=== PATIENT | male | born 1950 | race Caucasian/White ===

== ENCOUNTER 2023-01-02 12:55 | Inpatient (IN) | payer MEDICARE, OTHER ==
--- NOTE | 2023-01-02 13:31 | ED ---
General Adult HPI - General Chief complaint: Shortness of Breath Stated complaint: FAHAD Time Seen by Provider: 01/02/23 13:10 Source: patient, RN notes reviewed, old records reviewed Mode of arrival: ambulatory Limitations: no limitations - History of Present Illness Initial comments: This is a 72-year-old male who presents emergency department with past medical history significant for liver failure probably secondary to drinking. Patient has often had ascites and pleural effusion. Patient states he has had it drained a couple times in the past. Patient states the difficulty breathing continues to get worse since last time he was drained earlier this month. Patient denies any fever chills. Patient denies any chest pain or palpitations. Patient denies any lightheadedness or dizziness. Patient states she has a little swelling to his legs but nothing worse than normal. Patient denies any calf pain. - Related Data Home Medications Medication Instructions Recorded Confirmed Furosemide [Lasix] 40 mg PO DAILY 01/02/23 01/02/23 Omeprazole [PriLOSEC] 20 mg PO DAILY 01/02/23 01/02/23 Spironolactone [Aldactone] 100 mg PO DAILY 01/02/23 01/02/23 Allergies Allergy/AdvReac Type Severity Reaction Status Date / Time No Known Allergies Allergy Verified 01/02/23 16:55 Review of Systems ROS Statement: Those systems with pertinent positive or pertinent negative responses have been documented in the HPI. ROS Other: All systems not noted in ROS Statement are negative. Past Medical History Past Medical History: Hypertension Additional Past Medical History / Comment(s): chronic hyponatermia, maurer esophagas, hyperbilirubinemia,espohageal varices History of Any Multi-Drug Resistant Organisms: None Reported Additional Past Surgical History / Comment(s): cataracts Past Psychological History: No Psychological Hx Reported Smoking Status: Never smoker Past Alcohol Use History: Abuse, Daily, Heavy Past Drug Use History: None Reported General Exam - General Exam Comments Initial Comments: GENERAL: Patient is well-developed and well-nourished. Patient is nontoxic and well- hydrated and is in mild distress. ENT: Neck is soft and supple. No significant lymphadenopathy is noted. Oropharynx is clear. Moist mucous membranes. Neck has full range of motion without eliciting any pain. EYES: The sclera were anicteric and conjunctiva were pink and moist. Extraocular movements were intact and pupils were equal round and reactive to light. Eyelids were unremarkable. PULMONARY: Unlabored respirations. Decreased breath sounds on the right base CARDIOVASCULAR: There is a regular rate and rhythm without any murmurs gallops or rubs. ABDOMEN: Soft and nontender with normal bowel sounds. SKIN: Skin is clear with no lesions or rashes and otherwise unremarkable. NEUROLOGIC: Patient is alert and oriented x3. Cranial nerves II through XII are grossly intact. Motor and sensory are also intact. Normal speech, volume and content. Symmetrical smile. Cerebellar exam grossly intact. MUSCULOSKELETAL: Normal extremities with adequate strength and full range of motion. Scant edema bilaterally no calf tenderness LYMPHATICS: No significant lymphadenopathy is noted PSYCHIATRIC: Normal psychiatric evaluation. Limitations: no limitations Course Vital Signs 01/02/23 01/02/23 01/02/23 13:08 14:30 15:26 Temperature 98.3 F 97.4 F L Pulse Rate 97 92 Respiratory 26 H 18 18 Rate Blood Pressure 114/76 127/80 O2 Sat by Pulse 97 100 Oximetry Medical Decision Making - Medical Decision Making EKG was interpreted by myself. EKG shows sinus rhythm at 88 bpm CA interval 216 QRS 7070 QT interval 395 QTC is 441. Patient's EKG shows no ST segment eleva tion or depression. Was pt. sent in by a medical professional or institution (, PA, AUDIO VISUAL TECHNICIAN, urgent care, hospital, or detention...) When possible be specific @ -No Did you speak to anyone other than the patient for history (EMS, parent, family, police, friend...)? What history was obtained from this source @ -No Did you review nursing and triage notes (agree or disagree)? Why? @ -I reviewed and agree with nursing and triage notes Were old charts reviewed (outside hosp., previous admission, EMS record, old EKG, old radiological studies, urgent care reports/EKG's, detention records)? Report findings @ -I reviewed prior radiological studies on this patient Differential Diagnosis (chest pain, altered mental status, abdominal pain women, abdominal pain men, vaginal bleeding, weakness, fever, dyspnea, syncope, head ache, dizziness, GI bleed, back pain, seizure, CVA, palpatations, mental health, musculoskeletal)? @ -Differential Dyspnea: Coronary syndrome, arrhythmia, tamponade, asthma, COPD, pulmonary embolism, pneumonia, pneumothorax, pulmonary effusion, anaphylaxis, diabetic ketoacidosis, flailed chest, pulmonary contusion, diaphragmatic rupture, anemia, neuromuscular, this is not meant to be an all-inclusive list. EKG interpreted by me (3pts min.). @ -As above X-rays interpreted by me (1pt min.). @ -Chest x-ray shows complete opacification of the right lung CT interpreted by me (1pt min.). @ -None done U/S interpreted by me (1pt. min.). @ -None done What testing was considered but not performed or refused? (CT, X-rays, U/S, labs)? Why? @ -None What meds were considered but not given or refused? Why? @ -None Did you discuss the management of the patient with other professionals (professionals i.e. , PA, AUDIO VISUAL TECHNICIAN, lab, RT, psych nurse, mental health social worker, electric system operator, teacher, mail officer, manager case)? Give summary @ -Is case with Dr. Rowland he agreed to admit the patient Was smoking cessation discussed for >3mins.? @ -No Was critical care preformed (if so, how long)? @ -No Were there social determinants of health that impacted care today? How? (Homelessness, low income, unemployed, alcoholism, drug addiction, tra nsportation, low edu. Level, literacy, decrease access to med. care, nursing home, rehab)? @ -No Was there de-escalation of care discussed even if they declined (Discuss DNR or withdrawal of care, Hospice)? DNR status @ -No What co-morbidities impacted this encounter? (DM, HTN, Smoking, COPD, CAD, Cancer, CVA, ARF, Chemo, Hep., AIDS, mental health diagnosis, sleep apnea, morbid obesity)? @ -None Was patient admitted / discharged? Hospital course, mention meds given and route, prescriptions, significant lab abnormalities, going to OR and other pertinent info. @ -Patient's chest x-ray showed complete opacification of the right lung. I spoke with Dr. Rowland he agreed to admit the patient admitted the patient I consulted Dr. Huber Undiagnosed new problem with uncertain prognosis? @ -No Drug Therapy requiring intensive monitoring for toxicity (Heparin, Nitro, Insulin, Cardizem)? @ -No Were any procedures done? @ -No Diagnosis/symptom? @ -Dyspnea Acute, or Chronic, or Acute on Chronic? @ -Acute Uncomplicated (without systemic symptoms) or Complicated (systemic symptoms)? @ -Complicated Side effects of treatment? @ -No Exacerbation, Progression, or Severe Exacerbation? @ -No Poses a threat to life or bodily function? How? (Chest pain, [place], [place], pneumonia, PE, COPD, DKA, ARF, appy, cholecystitis, CVA, Diverticulitis, Homicidal, Suici wolfgang, threat to staff... and all critical care pts) @ -Yes could lead to hypoxia and then end organ dysfunction Diagnosis/symptom? @ -Hyponatremia, hypomagnesemia Acute, or Chronic, or Acute on Chronic? @ -Acute Uncomplicated (without systemic symptoms) or Complicated (systemic symptoms)? @ -Uncomplicated Side effects of treatment? @ -none Exacerbation, Progression, or Severe Exacerbation] @ -no Poses a threat to life or bodily function? @ -no - Lab Data Result diagrams: 01/02/23 14:28 01/02/23 15:10 Lab Results 01/02/23 01/02/23 01/02/23 Range/Units 14:28 14:28 15:10 WBC 8.4 (3.8-10.6) k/uL RBC 3.76 L (4.30-5.90) m/uL Hgb 13.2 (13.0-17.5) gm/dL Hct 40.4 (39.0-53.0) % MCV 107.6 H (80.0-100.0) fL MCH 35.2 H (25.0-35.0) pg MCHC 32.7 (31.0-37.0) g/dL RDW 15.0 (11.5-15.5) % Plt Count 213 (150-450) k/uL MPV 8.0 Neutrophils % 60 % Lymphocytes % 22 % Monocytes % 14 % Eosinophils % 2 % Basophils % 0 % Neutrophils # 5.0 (1.3-7.7) k/uL Lymphocytes # 1.8 (1.0-4.8) k/uL Monocytes # 1.1 H (0-1.0) k/uL Eosinophils # 0.2 (0-0.7) k/uL Basophils # 0.0 (0-0.2) k/uL Manual Slide Review Performed Macrocytosis Marked A PT 15.2 H (9.0-12.0) sec INR 1.5 H (<1.2) APTT 25.6 (22.0-30.0) sec Sodium (137-145) mmol/L Potassium (3.5-5.1) mmol/L Chloride (98-107) mmol/L Carbon Dioxide (22-30) mmol/L Anion Gap mmol/L BUN (9-20) mg/dL Creatinine (0.66-1.25) mg/dL Est GFR (CKD-EPI)AfAm (>60 ml/min/1.73 sqM) Est GFR (CKD-EPI)NonAf (>60 ml/min/1.73 sqM) Glucose (74-99) mg/dL Plasma Lactic Acid Giuseppe 3.0 H* (0.7-2.0) mmol/L Calcium (8.4-10.2) mg/dL Magnesium (1.6-2.3) mg/dL Total Bilirubin (0.2-1.3) mg/dL AST (17-59) U/L ALT (4-49) U/L Alkaline Phosphatase (38-126) U/L Troponin I (0.000-0.034) ng/mL NT-Pro-B Natriuret Pep pg/mL Total Protein (6.3-8.2) g/dL Albumin (3.5-5.0) g/dL 01/02/23 01/02/23 Range/Units 15:10 15:10 WBC (3.8-10.6) k/uL RBC (4.30-5.90) m/uL Hgb (13.0-17.5) gm/dL Hct (39.0-53.0) % MCV (80.0-100.0) fL MCH (25.0-35.0) pg MCHC (31.0-37.0) g/dL RDW (11.5-15.5) % Plt Count (150-450) k/uL MPV Neutrophils % % Lymphocytes % % Monocytes % % Eosinophils % % Basophils % % Neutrophils # (1.3-7.7) k/uL Lymphocytes # (1.0-4.8) k/uL Monocytes # (0-1.0) k/uL Eosinophils # (0-0.7) k/uL Basophils # (0-0.2) k/uL Manual Slide Review Macrocytosis PT (9.0-12.0) sec INR (<1.2) APTT (22.0-30.0) sec Sodium 129 L (137-145) mmol/L Potassium 3.7 (3.5-5.1) mmol/L Chloride 94 L (98-107) mmol/L Carbon Dioxide 25 (22-30) mmol/L Anion Gap 10 mmol/L BUN 5 L (9-20) mg/dL Creatinine 0.73 (0.66-1.25) mg/dL Est GFR (CKD-EPI)AfAm >90 (>60 ml/min/1.73 sqM) Est GFR (CKD-EPI)NonAf >90 (>60 ml/min/1.73 sqM) Glucose 115 H (74-99) mg/dL Plasma Lactic Acid Giuseppe (0.7-2.0) mmol/L Calcium 8.5 (8.4-10.2) mg/dL Magnesium 1.5 L (1.6-2.3) mg/dL Total Bilirubin 3.1 H (0.2-1.3) mg/dL AST 73 H (17-59) U/L ALT 29 (4-49) U/L Alkaline Phosphatase 128 H (38-126) U/L Troponin I <0.012 (0.000-0.034) ng/mL NT-Pro-B Natriuret Pep 550 pg/mL Total Protein 8.5 H (6.3-8.2) g/dL Albumin 2.9 L (3.5-5.0) g/dL Disposition Clinical Impression: Pleural effusion, Dyspnea, Hypomagnesemia, Hyponatremia Disposition: ADMITTED IP TO THIS [facility] Time of Disposition: 16:34
--- NOTE | 2023-01-02 14:15 | XR ---
EXAMINATION TYPE: XR chest 2V DATE OF EXAM: 01/02/2023 COMPARISON: NONE TECHNIQUE: PA and lateral views submitted. HISTORY: difficulty in breathing. FINDINGS: Complete opacification the right hemithorax. There is deviation of the airway to the left. Subsegment al changes in the retrocardiac region. Visualized left lung clear. No pneumothorax. Hypertrophic dege nerative changes in the spine. Correlate for diffuse idiopathic skeletal hyperostosis. Bilateral shou lder arthropathy. IMPRESSION: 1. Complete opacification of the right hemithorax may represent a combination of pleural fluid and co nsolidation. Endobronchial lesion or obstruction in the differential diagnosis.
[2023-01-02 14:54] LABS: Basophils % (A) 0 %; Eosinophils # (A) 0.2 k/uL (0-0.7); Eosinophils % (A) 2 %; HCT 40.4 % (39.0-53.0); HGB 13.2 gm/dL (13.0-17.5); Lymphocytes # (A) 1.8 k/uL (1.0-4.8); Lymphocytes % (A) 22 %; MCH 35.2 pg (25.0-35.0); MCHC 32.7 g/dL (31.0-37.0); MCV 107.6 fL (80.0-100.0); Macrocytosis Marked; Monocytes # (A) 1.1 k/uL (0-1.0); Monocytes % (A) 14 %; Neutrophils % (A) 60 %; Platelet Count 213 k/uL (150-450); RBC 3.76 m/uL (4.30-5.90); WBC 8.4 k/uL (3.8-10.6)
[2023-01-02 15:05] LABS: INR 1.5 (<1.2); Partial Thromboplastin Time 25.6 sec (22.0-30.0); Prothrombin Time 15.2 sec (9.0-12.0)
[2023-01-02 15:32] LABS: ALT 29 U/L (4-49); AST 73 U/L (17-59); African American GFR (CKD) >90 (>60 ml/min/1.73 sqM); Albumin 2.9 g/dL (3.5-5.0); Alkaline Phosphatase 128 U/L (38-126); Anion Gap 10 mmol/L; Blood Urea Nitrogen 5 mg/dL (9-20); Calcium 8.5 mg/dL (8.4-10.2); Carbon Dioxide 25 mmol/L (22-30); Chloride 94 mmol/L (98-107); Glucose 115 mg/dL (74-99); Magnesium 1.5 mg/dL (1.6-2.3); Non-African American GFR(CKD) >90 (>60 ml/min/1.73 sqM); Potassium 3.7 mmol/L (3.5-5.1); Sodium 129 mmol/L (137-145); Total Bilirubin 3.1 mg/dL (0.2-1.3); Total Protein 8.5 g/dL (6.3-8.2)
[2023-01-02 15:40] LABS: NT-Pro-B-Type Natriuretic Pept 550 pg/mL
[2023-01-02] MEDS ORDERED: LORazepam 0.5 MG TAB PO PRN (18:06)
[2023-01-02] MEDS ORDERED: LACTULOSE 20 GM/30 ML CUP PO PRN (18:06)
[2023-01-02] MEDS ORDERED: CALCIUM CARBONATE 500 MG CHEWABLE PO PRN (18:06)
[2023-01-02] MEDS ORDERED: MELATONIN 3 MG TABLET PO PRN (18:06)
[2023-01-02] MEDS ORDERED: NALOXONE 0.4 MG/ML 1 ML VIAL IV PRN (18:06)
[2023-01-02] MEDS ORDERED: ONDANSETRON 4 MG/2 ML VIAL IVP PRN (18:06)
[2023-01-02] MEDS ORDERED: ACETAMINOPHEN TAB 325 MG TAB PO PRN (18:06)
--- NOTE | 2023-01-02 20:06 | US ---
EXAMINATION TYPE: US chest DATE OF EXAM: 01/02/2023 COMPARISON: XRAY: Today CLINICAL INDICATION: Male, 72 years old with history of Thoracentesis; david for thora TECHNIQUE: Targeted ultrasound of the posterior lower Bilateral EXAM MEASUREMENTS: Right Pleural Effusion pocket size: 8.9 cm Right skin surface to fluid distance: 3.2 cm Left Pleural Effusion pocket size: 0 cm Right side marked for possible thoracentesis outside the dept. Pulmonologists are able to review the images in the patient?s EMR. IMPRESSION: Findings as noted above.
--- NOTE | 2023-01-02 20:10 | P.CNPUL ---
History of Present Illness Consult date: 01/02/23 Reason for consult: dyspnea, pleural effusion History of present illness: This is a 72-year-old male patient with previous history of alcoholism and liver cirrhosis. The patient presented to the hospital because of worsening shortness of breath. He was at his primary care physician's office and he was found to have a large right-sided pleural effusion. In the emergency, the patient was quite short of breath. A chest x-ray was done and showed complete opacification of the right lung. He has had previous thoracentesis [address] [place] [facility] and the last thoracentesis was done on December 17. He also has history of ascites and the patient has had previous paracentesis. He has not drank alcohol since 2021. No signs of any hepatic encephalopathy. No cough. No sputum production. Trace lower extremity edema. No encephalopathy at this point in time. The patient is afebrile. The dullness count of 8.4 with a he moglobin of 13.2. BUN is at 5 the creatinine 0.7. Sodium level is at 129. INR is at 1.5 with a PT of 15.2 and a PTT of 25.6. Lactic acid level is at 3.0. LFTs are abnormal with an AST of 73, alkaline phosphatase of 128, troponins are negative, proBNP level is 550. Electrolytes are all within normal limits. Review of Systems Constitutional: Reports as per HPI, Reports fatigue, Reports poor appetite, Reports weight loss Eyes: denies as per HPI, denies blurred vision, denies bulging eye, denies decreased vision, denies diplopia, denies discharge, denies dry eye, denies irritation, denies itching, denies pain, denies photophobia, denies loss of peripheral vision, denies loss of vision, denies tunnel vision/blind spots Ears: deny: decreased hearing, ear discharge, earache, tinnitus Ears, nose, mouth and throat: Reports as per HPI Breasts: absent: as per HPI, gynecomastia Cardiovascular: Reports decreased exercise tolerance, Reports dyspnea on exertion Respiratory: Reports dyspnea Gastrointestinal: Reports as per HPI Musculoskeletal: Reports as per HPI Musculoskeletal: bilateral: ankle swelling, absent: ankle pain, ankle stiffness Integumentary: Reports as per HPI Neurological: Reports as per HPI Psychiatric: Reports as per HPI Endocrine: Reports as per HPI Hematologic/Lymphatic: Reports as per HPI Allergic/Immunologic: Reports as per HPI Past Medical History Past Medical History: Hypertension, Liver Disease Additional Past Medical History / Comment(s): chronic hyponatermia, maurer esophagas, hyperbilirubinemia,espohageal varices History of Any Multi-Drug Resistant Organisms: None Reported Additional Past Surgical History / Comment(s): cataracts Past Psychological History: No Psychological Hx Reported Smoking Status: Never smoker Past Alcohol Use History: Abuse, Daily, Heavy Past Drug Use History: None Reported Medications and Allergies Home Medications Medication Instructions Recorded Confirmed Type Furosemide [Lasix] 40 mg PO DAILY 01/02/23 01/02/23 History Omeprazole [PriLOSEC] 20 mg PO DAILY 01/02/23 01/02/23 History Spironolactone [Aldactone] 100 mg PO DAILY 01/02/23 01/02/23 History Allergies Allergy/AdvReac Type Severity Reaction Status Date / Time No Known Allergies Allergy Verified 01/02/23 16:55 Physical Exam Vitals: Vital Signs Temp Pulse Resp BP Pulse Ox 01/02/23 18:00 95 18 130/85 94 L 01/02/23 15:26 97.4 F L 92 18 127/80 100 01/02/23 14:30 18 01/02/23 13:08 98.3 F 97 26 H 114/76 97 Intake and Output 01/02/23 01/02/23 01/02/23 06:59 14:59 22:59 Other: Weight 95.254 kg Gen. appearance the patient is awake and alert and short of breath, currently on room air oxygen. Head exam was generally normal. There was no scleral icterus or corneal arcus. Mucous membranes were moist. Neck was supple and with jugular venous distension, thyromegaly, or carotid bruits. Carotids were easily palpable bilaterally. There was no adenopathy., The patient does have JVDs Lungs are diminished on the right side and the patient is complete opacification of the right lung, the breath sounds on the left are clear Cardiac exam revealed the PMI to be normally situated and sized. The rhythm was regular and no extrasystoles were noted during several minutes of auscultation. The first and second heart sounds were normal and physiologic splitting of the second heart sound was noted. There were no murmurs, rubs, clicks, or gallops. Abdomen is showing and ascites with a umbilical hernia. No direct tenderness, no rebound tenderness. No guarding Extremities trace edema, no cyanosis or clubbing Neurologically, the patient is awake and alert 3, no focal neurological deficit at this point in time. Examination of the skin revealed no evidence of significant rashes, suspicious appearing nevi or other concerning lesions. Results - Laboratory Findings CBC and BMP: 01/02/23 14:28 01/02/23 15:10 PT/INR, D-dimer PT 15.2 sec (9.0-12.0) H 01/02/23 14:28 INR 1.5 (<1.2) H 01/02/23 14:28 Abnormal lab findings: Abnormal Labs 01/02/23 01/02/23 01/02/23 14:28 14:28 15:10 RBC 3.76 L MCV 107.6 H MCH 35.2 H Monocytes # 1.1 H Macrocytosis Marked A PT 15.2 H INR 1.5 H Sodium Chloride BUN Glucose Plasma Lactic Acid Giuseppe 3.0 H* Magnesium Total Bilirubin AST Alkaline Phosphatase Total Protein Albumin 01/02/23 15:10 RBC MCV MCH Monocytes # Macrocytosis PT INR Sodium 129 L Chloride 94 L BUN 5 L Glucose 115 H Plasma Lactic Acid Giuseppe Magnesium 1.5 L Total Bilirubin 3.1 H AST 73 H Alkaline Phosphatase 128 H Total Protein 8.5 H Albumin 2.9 L - Diagnostic Findings Chest x-ray: image reviewed Assessment and Plan Plan: 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 No significant encephalopathy at this point in time Chronic hyponatremia secondary to liver failure Hyperbilirubinemia secondary to above Hypertension Plan We'll proceed with a large volume thoracentesis of the right lung Consult interventional radiology for paracentesis within next 24 hours Continue diuretics Continue lactulose Continue Aldactone We'll continue to follow
--- NOTE | 2023-01-02 20:31 | P.PCN ---
Date of Procedure: 01/02/23 Preoperative Diagnosis: Right-sided pleural effusion Postoperative Diagnosis: Right-sided pleural effusion Procedure(s) Performed: Right-sided thoracentesis Anesthesia: local Surgeon: Mervin Huber Estimated Blood Loss (ml): 0 Pathology: other Condition: stable Disposition: floor Operative Findings: A time out was performed and the chest x-ray was reviewed, the appropriate side was confirmed and marked. My hands were washed immediately prior to the procedure. I wore a surgical cap, mask with protective eyewear, sterile gown and sterile gloves throughout the procedure. The patient was prepped and draped in a sterile manner using chlorhexidine scrub after the appropriate level was percussed and confirmed by ultrasound. 1% lidocaine was used to anesthesize the skin, subcutaneous tissue, superior aspect of the rib periosteum and parietal pleura. A finder needle was then introduced over the superior aspect of the rib to locate the pleural fluid; 2colored fluid was aspirated at a depth of approximately 2 cm. A 10-blade scalpel was used to arlyn the skin at the insertion site. The Vrix-o-Frfwyxxl needle was then introduced through the skin incision into the pleural space using negative aspiration pressure and the red colometric indicator to confirm appropriate positioning of the needle. The thoracentesis catheter was then threaded without difficulty. 3000 ml of turbid colored fluid was removed without difficulty. The catheter was then removed. No immediate complications were noted during the procedure. A post-procedure chest x-ray is pending at the time of this note. The fluid will be sent for studies. Estimated blood loss is 0cc
--- NOTE | 2023-01-02 22:08 | XR ---
EXAMINATION TYPE: XR chest 1V DATE OF EXAM: 01/02/2023 8:47 PM COMPARISON: Chest radiographs from 01/02/2023, chest ultrasound 01/02/2023 TECHNIQUE: XR chest 1V Frontal view of the chest. CLINICAL INDICATION:Male, 72 years old with history of post thoracentesis; FINDINGS: Lungs/Pleura: Left lung is clear. Decreased moderate size right pleural effusion with associated atel ectasis. No pneumothorax. Pulmonary vascularity: Unremarkable. Heart/mediastinum: Cardiomediastinal silhouette is unremarkable. Musculoskeletal: No acute osseous pathology. IMPRESSION: Decreased now moderate size right pleural effusion with associated atelectasis status post thoracente sis. No pneumothorax.
[2023-01-03] MEDS: PANTOPRAZOLE 40 MG TABLET PO SCH (08:07)
[2023-01-03] MEDS ORDERED: SPIRONOLACTONE 25 MG TAB PO SCH (09:00)
[2023-01-03 12:09] LABS: Basophils % (A) 0 %; Eosinophils # (A) 0.3 k/uL (0-0.7); Eosinophils % (A) 4 %; HCT 39.1 % (39.0-53.0); HGB 12.7 gm/dL (13.0-17.5); Lymphocytes # (A) 2.1 k/uL (1.0-4.8); Lymphocytes % (A) 27 %; MCH 35.6 pg (25.0-35.0); MCHC 32.5 g/dL (31.0-37.0); MCV 109.4 fL (80.0-100.0); Macrocytosis Marked; Mean Platelet Volume 7.8; Monocytes # (A) 0.8 k/uL (0-1.0); Monocytes % (A) 10 %; Neutrophils # (A) 4.5 k/uL (1.3-7.7); Neutrophils % (A) 57 %; Platelet Count 216 k/uL (150-450); RBC 3.57 m/uL (4.30-5.90); WBC 7.9 k/uL (3.8-10.6)
[2023-01-03 12:16] LABS: Chloride 95 mmol/L (98-107)
[2023-01-03 12:17] LABS: ALT 27 U/L (4-49); AST 65 U/L (17-59); African American GFR (CKD) >90 (>60 ml/min/1.73 sqM); Albumin 2.5 g/dL (3.5-5.0); Albumin/Globulin Ratio 0.5; Alkaline Phosphatase 113 U/L (38-126); Anion Gap 5 mmol/L; Blood Urea Nitrogen 6 mg/dL (9-20); Calcium 8.3 mg/dL (8.4-10.2); Carbon Dioxide 28 mmol/L (22-30); Glucose 113 mg/dL (74-99); Non-African American GFR(CKD) >90 (>60 ml/min/1.73 sqM); Potassium 4.2 mmol/L (3.5-5.1); Sodium 128 mmol/L (137-145); Total Bilirubin 2.7 mg/dL (0.2-1.3); Total Protein 7.5 g/dL (6.3-8.2)
--- NOTE | 2023-01-03 12:59 | US ---
EXAMINATION TYPE: US abdomen limited DATE OF EXAM: 01/03/2023 COMPARISON: NONE CLINICAL INDICATION: Male, 72 years old with history of to assess for fluid pocket; ascites check FINDINGS and IMPRESSION: Drama Director notes: Several sonographic images acquired of the four quadrants. Most prominent fluid pockets are on the right side. The deepest unobstructed pocket is 8.4cm in the R LQ
[2023-01-03 14:04] VITALS: BMI 31.0
--- NOTE | 2023-01-03 14:53 | P.PN ---
Subjective Progress Note Date: 01/03/23 This is a 72-year-old male patient with previous history of alcoholism and liver cirrhosis. The patient presented to the hospital because of worsening shortness of breath. He was at his primary care physician's office and he was found to have a large right-sided pleural effusion. In the emergency, the patient was quite short of breath. A chest x-ray was done and showed complete opacification of the right lung. He has had previous thoracentesis 2 at [facility] and the last thoracentesis was done on December 17. He also has history of ascites and the patient has had previous paracentesis. He has not drank alcohol since 2021. No signs of any hepatic encephalopathy. No cough. No sputum production. Trace lower extremity edema. No encephalopathy at this point in time. The patient is afebrile. The dullness count of 8.4 with a hemoglobin of 13.2. BUN is at 5 the creatinine 0.7. Sodium level is at 129. INR is at 1.5 with a PT of 15.2 and a PTT of 25.6. Lactic acid level is at 3.0. LFTs are abnormal with an AST of 73, alkaline phosphatase of 128, troponins are negative, proBNP level is 550. Electrolytes are all within normal limits. On 01/03/2023, the patient is feeling better. The patient is less short of breath. The patient remains on room air oxygen. A total of 3 L of fluid was removed from the right lung without any complication. The patient continues to have an ascites and the patient would benefit from a paracentesis. Objective - Vital Signs Vital signs: Vital Signs Temp 98.1 F 01/03/23 14:45 Pulse 89 01/03/23 14:45 Resp 16 01/03/23 14:45 BP 96/61 01/03/23 14:45 Pulse Ox 97 01/03/23 14:45 FiO2 Intake & Output 01/02/23 01/03/23 01/03/23 18:59 06:59 18:59 Weight 95.254 kg 95.254 kg 95.254 kg Other: Voiding Method Toilet Toilet # Voids 3 - Exam Gen. appearance the patient is awake and alert and short of breath, currently on room air oxygen. Head exam was generally normal. There was no scleral icterus or corneal arcus. Mucous membranes were moist. Neck was supple and with jugular venous distension, thyromegaly, or carotid bruits. Carotids were easily palpable bilaterally. There was no adenopathy., The patient does have JVDs Lungs are diminished on the right side and the patient is complete opacification of the right lung, the breath sounds on the left are clear Cardiac exam revealed the PMI to be normally situated and sized. The rhythm was regular and no extrasystoles were noted during several minutes of auscultation. The first and second heart sounds were normal and physiologic splitting of the second heart sound was noted. There were no murmurs, rubs, clicks, or gallops. Abdomen is showing and ascites with a umbilical hernia. No direct tenderness, no rebound tenderness. No guarding Extremities trace edema, no cyanosis or clubbing Neurologically, the patient is awake and alert 3, no focal neurological deficit at this point in time. Examination of the skin revealed no evidence of significant rashes, suspicious appearing nevi or other concerning lesions. - Labs CBC & Chem 7: 01/03/23 11:11 01/03/23 11:11 Labs: Abnormal Lab Results - Last 24 Hours (Table) 01/02/23 01/02/23 01/02/23 Range/Units 14:28 14:28 15:10 RBC 3.76 L (4.30-5.90) m/uL Hgb (13.0-17.5) gm/dL MCV 107.6 H (80.0-100.0) fL MCH 35.2 H (25.0-35.0) pg Monocytes # 1.1 H (0-1.0) k/uL Macrocytosis Marked A PT 15.2 H (9.0-12.0) sec INR 1.5 H (<1.2) Sodium (137-145) mmol/L Chloride (98-107) mmol/L BUN (9-20) mg/dL Glucose (74-99) mg/dL Plasma Lactic Acid Giuseppe 3.0 H* (0.7-2.0) mmol/L Calcium (8.4-10.2) mg/dL Magnesium (1.6-2.3) mg/dL Total Bilirubin (0.2-1.3) mg/dL AST (17-59) U/L Alkaline Phosphatase (38-126) U/L Total Protein (6.3-8.2) g/dL Albumin (3.5-5.0) g/dL 01/02/23 01/02/23 01/02/23 Range/Units 15:10 18:56 22:45 RBC (4.30-5.90) m/uL Hgb (13.0-17.5) gm/dL MCV (80.0-100.0) fL MCH (25.0-35.0) pg Monocytes # (0-1.0) k/uL Macrocytosis PT (9.0-12.0) sec INR (<1.2) Sodium 129 L (137-145) mmol/L Chloride 94 L (98-107) mmol/L BUN 5 L (9-20) mg/dL Glucose 115 H (74-99) mg/dL Plasma Lactic Acid Giuseppe 2.4 H* 3.3 H* (0.7-2.0) mmol/L Calcium (8.4-10.2) mg/dL Magnesium 1.5 L (1.6-2.3) mg/dL Total Bilirubin 3.1 H (0.2-1.3) mg/dL AST 73 H (17-59) U/L Alkaline Phosphatase 128 H (38-126) U/L Total Protein 8.5 H (6.3-8.2) g/dL Albumin 2.9 L (3.5-5.0) g/dL 01/03/23 01/03/23 Range/Units 11:11 11:11 RBC 3.57 L (4.30-5.90) m/uL Hgb 12.7 L (13.0-17.5) gm/dL MCV 109.4 H (80.0-100.0) fL MCH 35.6 H (25.0-35.0) pg Monocytes # (0-1.0) k/uL Macrocytosis Marked A PT (9.0-12.0) sec INR (<1.2) Sodium 128 L (137-145) mmol/L Chloride 95 L (98-107) mmol/L BUN 6 L (9-20) mg/dL Glucose 113 H (74-99) mg/dL Plasma Lactic Acid Giuseppe (0.7-2.0) mmol/L Calcium 8.3 L (8.4-10.2) mg/dL Magnesium (1.6-2.3) mg/dL Total Bilirubin 2.7 H (0.2-1.3) mg/dL AST 65 H (17-59) U/L Alkaline Phosphatase (38-126) U/L Total Protein (6.3-8.2) g/dL Albumin 2.5 L (3.5-5.0) g/dL Assessment and Plan Plan: 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
--- NOTE | 2023-01-03 14:57 | US ---
Ultrasound-guided paracentesis. DATE OF EXAM: 01/03/2023 CLINICAL HISTORY: Ascites The procedure was discussed with the patient. The risks, complications, benefits, and alternatives we re discussed and any questions were answered. Informed consent was obtained. The patient was placed s upine on the ultrasound table and prepped and draped in the usual sterile fashion. All elements of maximal barrier technique were utilized. Under ultrasound guidance, access into the right lower quadrant was obtained, via the paracentesis catheter system and direct ultrasound guidanc e. Approximately 1.5 liters of straw-colored fluid was removed. The patient was stable throughout the pr ocedure and remained stable upon discharge from Department of Radiology. IMPRESSION: Successful paracentesis under ultrasound guidance.
--- NOTE | 2023-01-03 17:04 | P.HPIM ---
History of Present Illness H&P Date: 01/03/23 Chief Complaint: Short of breath This is a pleasant 72-year-old patient of Dr. Horacio Cardoza. Not a very detailed historian. Known history of hypertension, Maurer's esophag itis, varices, possible cirrhosis. Last saw Dr. Annalee Zafar from GI about 2 years ago. Request to 2 months patient been getting increasingly short of breath. No fever no chills. Decreased appetite. Some weight loss. Normally able to get around. Patient was drinking somewhat excessive alcohol in the past. Has lower extremity edema. Some abdominal distention. No chest pain Review of systems: GEN.: Decreased appetite EYES: None HEENT: None NECK: None RESPIRATORY: As above CARDIOVASCULAR: No chest pain GASTROINTESTINAL: None GENITOURINARY: None MUSCULOSKELETAL: None LYMPHATICS: None HEMATOLOGICAL: None PSYCHIATRY: Bit forgetful NEUROLOGICAL: None Past medical history to include: Hypertension, possible cirrhosis, Maurer's esophagus, low-sodium, esophageal varices, Social history: . Retired from [employer]. Up till last year was averaging about 12 beers a week. No smoking. Physical examination: VITAL SIGNS: 98.3, 97, 26, 104/76, 97% room air GENERAL: BMI 31, reclining bed awake slightly short of breath. Gynecomastia. Spider nevi. Dupytrens contracture EYES: Pupils equal. Conjunctiva normal. HEENT: External appearance of nose and ears normal, oral cavity grossly normal. NECK: JVD possibly raised masses not palpable. HEART: First and second heart sounds are normal; no edema. LUNGS: Respiratory rate increased; creased breath sounds. ABDOMEN: Soft, some distention, nontender, liver spleen not palpable, no masses palpable. Dullness to percussion in the flanks. PSYCH: [Able tonsil simple questions. MUSCULOSKELETAL:No Clubbing/cyanosis;muscles-grossly intact NEUROLOGICAL: Cranial nerves grossly intact; no facial asymmetry, power and sensation grossly intact. LYMPHATICS: No lymph nodes palpable in the axilla and neck INVESTIGATIONS, reviewed in the clinical context: 01/03/2023: White count 7.9 hemoglobin 12.7 platelets 216 sodium 128 potassium 4.2 BUN 6 rate and 0.68 total bilirubin 2.7 albumin 2.5 January 02: White count 8.4 hemoglobin 13.2 platelets 213 sodium 129 potassium 3.7 creatinine 0.73 lactic acid 3.0 magnesia 1.5 total bilirubin 3.1 EKG tracing personally reviewed by me-normal sinus rhythm. Chest x-ray film personally reviewed by me-near opacification of the right lung. Chest ultrasound: 8.9 cm on the right side. 0 on the left side. Assessment and plan: -Large right pleural effusion. Could be from abdominal ascites translocation due to the same. Other causes to be ruled out. 1.5 L of straw-colored fluid removed today. Pulmonary consulted. -Probable alcoholic cirrhosis with evidence of portal hypertension. Patient has followed up with Dr. Annalee Zafar in the past. GI service not available in the hospital. -Ascites secondary to portal hypertension from cirrhosis Fluid restriction. Increase Aldactone to 100 mg twice a day.. -Hypoalbuminemia from cirrhosis. -Chronic Esophageal varices. Currently no evidence of bleeding. -GERD PPI -Hyponatremia from hypervolemia. Diuretics.. Fluid restriction. -Full code Discussed with patient today. Status post paracentesis.Given the complexity and severity of patient's condition expect the patient to be in the hospital at least for 2 overnights Past Medical History Past Medical History: Hypertension, Liver Disease Additional Past Medical History / Comment(s): chronic hyponatermia, maurer esophagas, hyperbilirubinemia,espohageal varices History of Any Multi-Drug Resistant Organisms: None Reported Additional Past Surgical History / Comment(s): cataracts Past Psychological History: No Psychological Hx Reported Smoking Status: Never smoker Past Alcohol Use History: Abuse, Daily, Heavy Past Drug Use History: None Reported Medications and Allergies Home Medications Medication Instructions Recorded Confirmed Type Furosemide [Lasix] 40 mg PO DAILY 01/02/23 01/02/23 History Omeprazole [PriLOSEC] 20 mg PO DAILY 01/02/23 01/02/23 History Spironolactone [Aldactone] 100 mg PO DAILY 01/02/23 01/02/23 History Allergies Allergy/AdvReac Type Severity Reaction Status Date / Time No Known Allergies Allergy Verified 01/02/23 16:55 Physical Exam Vitals: Vital Signs Temp Pulse Pulse Resp BP BP Pulse Ox 01/03/23 08:00 97 16 01/03/23 07:00 98.6 F 97 16 107/71 94 L 01/03/23 02:48 97.4 F L 78 18 134/74 96 01/03/23 02:00 19 01/02/23 22:00 99 20 01/02/23 21:56 98.3 F 99 18 113/75 95 01/02/23 18:00 95 18 130/85 94 L 01/02/23 15:26 97.4 F L 92 18 127/80 100 01/02/23 14:30 18 01/02/23 13:08 98.3 F 97 26 H 114/76 97 Intake and Output 01/02/23 01/03/23 01/03/23 22:59 06:59 14:59 Other: Voiding Method Toilet Toilet Weight 95.254 kg Results CBC & Chem 7: 01/03/23 11:11 01/03/23 11:11 Labs: Abnormal Lab Results - Last 24 Hours (Table) 01/02/23 01/02/23 01/02/23 Range/Units 14:28 14:28 15:10 RBC 3.76 L (4.30-5.90) m/uL MCV 107.6 H (80.0-100.0) fL MCH 35.2 H (25.0-35.0) pg Monocytes # 1.1 H (0-1.0) k/uL Macrocytosis Marked A PT 15.2 H (9.0-12.0) sec INR 1.5 H (<1.2) Sodium (137-145) mmol/L Chloride (98-107) mmol/L BUN (9-20) mg/dL Glucose (74-99) mg/dL Plasma Lactic Acid Giuseppe 3.0 H* (0.7-2.0) mmol/L Magnesium (1.6-2.3) mg/dL Total Bilirubin (0.2-1.3) mg/dL AST (17-59) U/L Alkaline Phosphatase (38-126) U/L Total Protein (6.3-8.2) g/dL Albumin (3.5-5.0) g/dL 01/02/23 01/02/23 01/02/23 Range/Units 15:10 18:56 22:45 RBC (4.30-5.90) m/uL MCV (80.0-100.0) fL MCH (25.0-35.0) pg Monocytes # (0-1.0) k/uL Macrocytosis PT (9.0-12.0) sec INR (<1.2) Sodium 129 L (137-145) mmol/L Chloride 94 L (98-107) mmol/L BUN 5 L (9-20) mg/dL Glucose 115 H (74-99) mg/dL Plasma Lactic Acid Giuseppe 2.4 H* 3.3 H* (0.7-2.0) mmol/L Magnesium 1.5 L (1.6-2.3) mg/dL Total Bilirubin 3.1 H (0.2-1.3) mg/dL AST 73 H (17-59) U/L Alkaline Phosphatase 128 H (38-126) U/L Total Protein 8.5 H (6.3-8.2) g/dL Albumin 2.9 L (3.5-5.0) g/dL Thrombosis Risk Factor Assmnt - Choose All That Apply Any of the Below Risk Factors Present?: Yes Each Factor Represents 1 point: Obesity (BMI >25) Other Risk Factors: Yes Each Risk Factor Represents 2 Points: Age 61-74 years Other congenital or acquired thrombophilia - If yes, enter type in comment: No Thrombosis Risk Factor Assessment Total Risk Factor Score: 3 Thrombosis Risk Factor Assessment Level: Moderate Risk
[2023-01-03] MEDS: FUROSEMIDE 40 MG TAB PO SCH (18:06)
[2023-01-03] MEDS: SPIRONOLACTONE 25 MG TAB PO SCH (20:16)
[2023-01-04 05:59] LABS: African American GFR (CKD) >90 (>60 ml/min/1.73 sqM); Anion Gap 7 mmol/L; Blood Urea Nitrogen 5 mg/dL (9-20); Calcium 8.3 mg/dL (8.4-10.2); Carbon Dioxide 27 mmol/L (22-30); Chloride 97 mmol/L (98-107); Glucose 99 mg/dL (74-99); Non-African American GFR(CKD) >90 (>60 ml/min/1.73 sqM); Potassium 4.5 mmol/L (3.5-5.1); Sodium 131 mmol/L (137-145)
[2023-01-04] MEDS: SPIRONOLACTONE 25 MG TAB PO SCH ×2 (08:14→19:53)
[2023-01-04] MEDS: PANTOPRAZOLE 40 MG TABLET PO SCH (08:14)
[2023-01-04] MEDS: FUROSEMIDE 40 MG TAB PO SCH (08:14)
--- NOTE | 2023-01-04 14:23 | XR ---
EXAMINATION TYPE: XR chest 2V DATE OF EXAM: 01/04/2023 COMPARISON: 01/02/2023 HISTORY: Right-sided pleural effusion TECHNIQUE: Frontal and lateral views of the chest are obtained. FINDINGS: There has been a mild interval reduction in the size of the right pleural effusion however a markedly large pleural effusion persists. The left lung remains clear. The osseous structures are intact. IMPRESSION: Marked right-sided pleural effusion which has decreased slightly in the interval.
--- NOTE | 2023-01-04 14:39 | P.PN ---
Subjective Progress Note Date: 01/04/23 This is a 72-year-old male patient with previous history of alcoholism and liver cirrhosis. The patient presented to the hospital because of worsening shortness of breath. He was at his primary care physician's office and he was found to have a large right-sided pleural effusion. In the emergency, the patient was quite short of breath. A chest x-ray was done and showed complete opacification of the right lung. He has had previous thoracentesis 2 at [facility] and the last thoracentesis was done on December 17. He also has history of ascites and the patient has had previous paracentesis. He has not drank alcohol since 2021. No signs of any hepatic encephalopathy. No cough. No sputum production. Trace lower extremity edema. No encephalopathy at this point in time. The patient is afebrile. The dullness count of 8.4 with a hemoglobin of 13.2. BUN is at 5 the creatinine 0.7. Sodium level is at 129. INR is at 1.5 with a PT of 15.2 and a PTT of 25.6. Lactic acid level is at 3.0. LFTs are abnormal with an AST of 73, alkaline phosphatase of 128, troponins are negative, proBNP level is 550. Electrolytes are all within normal limits. On 01/03/2023, the patient is feeling better. The patient is less short of breath. The patient remains on room air oxygen. A total of 3 L of fluid was removed from the right lung without any complication. The patient continues to have an ascites and the patient would benefit from a paracentesis. 01/04/2023, the patient is post thoracentesis with 3 L and paracentesis with 1.5 L. No complaints. Objective - Vital Signs Vital signs: Vital Signs Temp 98.2 F 01/04/23 07:00 Pulse 89 01/04/23 07:00 Resp 16 01/04/23 07:00 BP 100/65 01/04/23 07:00 Pulse Ox 95 01/04/23 10:27 FiO2 21 01/04/23 10:27 Intake & Output 01/03/23 01/04/23 01/04/23 18:59 06:59 18:59 Output Total 400 Balance -400 Weight 95.254 kg Output: Urine 400 Other: Voiding Method Toilet Toilet Toilet Urinal Urinal # Voids 3 - Exam Gen. appearance the patient is awake and alert and short of breath, currently on room air oxygen. Head exam was generally normal. There was no scleral icterus or corneal arcus. Mucous membranes were moist. Neck was supple and with jugular venous distension, thyromegaly, or carotid bruits. Carotids were easily palpable bilaterally. There was no adenopathy., The patient does have JVDs Lungs are diminished on the right side and the patient is complete opacification of the right lung, the breath sounds on the left are clear Cardiac exam revealed the PMI to be normally situated and sized. The rhythm was regular and no extrasystoles were noted during several minutes of auscultation. The first and second heart sounds were normal and physiologic splitting of the second heart sound was noted. There were no murmurs, rubs, clicks, or gallops. Abdomen is showing and ascites with a umbilical hernia. No direct tenderness, no rebound tenderness. No guarding Extremities trace edema, no cyanosis or clubbing Neurologically, the patient is awake and alert 3, no focal neurological deficit at this point in time. Examination of the skin revealed no evidence of significant rashes, suspicious appearing nevi or other concerning lesions. 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 No significant encephalopathy at this point in time Chronic hyponatremia secondary to liver failure Hyperbilirubinemia secondary to above Hypertension Plan May discharge this patient home Continue lactulose Advice against Tylenol May benefit from Lasix and Aldactone at time of discharge
[2023-01-04] MEDS: FUROSEMIDE 10 MG/ML 10 ML VIAL IV SCH ×2 (15:22→21:20)
--- NOTE | 2023-01-04 17:26 | P.PN ---
Progress Note - Text Progress Note Date: 01/04/23 Chief Complaint: Short of breath This is a pleasant 72-year-old patient of Dr. Horacio Cardoza. Not a very detailed historian. Known history of hypertension, Gardner's esophagitis, varices, possible cirrhosis. Last saw Dr. Annalee Zafar from GI about 2 years ago. Request to 2 months patient been getting increasingly short of breath. No fever no chills. Decreased appetite. Some weight loss. Normally able to get around. Patient was drinking somewhat excessive alcohol in the past. Has lower extremity edema. Some abdominal distention. No chest pain Patient underwent thoracentesis and paracentesis. 01/04/2023: Still complaining of shortness of breath. Tired. Edema present. Eating some. Changed from by mouth Lasix to IV Lasix. Fluid restriction. Strict I's and O's. Have the patient up in a chair. Active Medications Acetaminophen (Acetaminophen Tab 325 Mg Tab) 650 mg PO Q6HR PRN PRN Reason: Mild Pain or Fever > 100.5 Calcium Carbonate/Glycine (Calcium Carbonate 500 Mg Chewable) 1,000 mg PO Q4HR PRN PRN Reason: Dyspepsia Furosemide (Furosemide 10 Mg/Ml 10 Ml Vial) 60 mg IV Q12HR [facility] Last Admin: 01/04/23 15:22 Dose: 60 mg Lactulose (Lactulose 20 Gm/30 Ml Cup) 20 gm PO DAILY PRN PRN Reason: Constipation Lorazepam (Lorazepam 0.5 Mg Tab) 0.5 mg PO Q6HR PRN PRN Reason: Anxiety Melatonin (Melatonin 3 Mg Tablet) 3 mg PO HS PRN PRN Reason: Insomnia Naloxone HCl (Naloxone 0.4 Mg/Ml 1 Ml Vial) 0.2 mg IV Q2M PRN PRN Reason: Opioid Reversal Ondansetron HCl (Ondansetron 4 Mg/2 Ml Vial) 4 mg IVP Q8HR PRN PRN Reason: Nausea And Vomiting Pantoprazole Sodium (Pantoprazole 40 Mg Tablet) 40 mg PO DAILY [facility] Last Admin: 01/04/23 08:14 Dose: 40 mg Spironolactone (Spironolactone 25 Mg Tab) 100 mg PO BID [facility] Last Admin: 01/04/23 08:14 Dose: 100 mg Past medical history to include: Hypertension, possible cirrhosis, Gardner's esophagus, low-sodium, esophageal varices, Social history: . Retired from [employer]. Up till last year was averaging about 12 beers a week. No smoking. Physical examination: VITAL SIGNS: 98.3, 82, 16, 11 3 x 61, 96% room air GENERAL: BMI 31, reclining bed. Tired. Gynecomastia. Spider nevi. Dupytrens contracture EYES: Pupils equal. Conjunctiva normal. HEENT: External appearance of nose and ears normal, oral cavity grossly normal. NECK: JVD possibly raised masses not palpable. HEART: First and second heart sounds are normal; no edema. LUNGS: Respiratory rate increased; decreased breath sounds. ABDOMEN: Soft, some distention, nontender, liver spleen not palpable, no masses palpable. Dullness to percussion in the flanks. PSYCH: Able to answer questions INVESTIGATIONS, reviewed in the clinical context: January 04: Potassium 4.5 crit 0.68 01/03/2023: White count 7.9 hemoglobin 12.7 platelets 216 sodium 128 potassium 4.2 BUN 6 rate and 0.68 total bilirubin 2.7 albumin 2.5 January 02: White count 8.4 hemoglobin 13.2 platelets 213 sodium 129 potassium 3.7 creatinine 0.73 lactic acid 3.0 magnesia 1.5 total bilirubin 3.1 EKG tracing personally reviewed by me-normal sinus rhythm. Chest x-ray film personally reviewed by me-near opacification of the right lung. Chest ultrasound: 8.9 cm on the right side. 0 on the left side. Assessment and plan: -Large right pleural effusion. Could be from abdominal ascites translocation due to the same. Other causes to be ruled out. 1.5 L of straw-colored fluid removed January 03.. Pulmonary following. -Probable alcoholic cirrhosis with evidence of portal hypertension. Patient has followed up with Dr. Annalee Zafar in the past. GI service not available in the hospital. -Ascites secondary to portal hypertension from cirrhosis Fluid restriction. Aldactone to 100 mg twice a day.. Paracentesis is 1.5 L done on January 03. -Acute fluid overload, multifactorial Change oral Lasix to IV Lasix 60 mg every 12. -Hypoalbuminemia from cirrhosis. -Chronic Esophageal varices. Currently no evidence of bleeding. -GERD PPI -Hyponatremia from hypervolemia. Diuretics.. Fluid restriction. -Full code IV Lasix 60 mg every 12. Strict I's and O's. Fluid restriction. Aldactone was increased yesterday.
[2023-01-05 06:06] LABS: African American GFR (CKD) >90 (>60 ml/min/1.73 sqM); Anion Gap 5 mmol/L; Blood Urea Nitrogen 5 mg/dL (9-20); Calcium 7.7 mg/dL (8.4-10.2); Carbon Dioxide 28 mmol/L (22-30); Chloride 95 mmol/L (98-107); Glucose 79 mg/dL (74-99); Non-African American GFR(CKD) >90 (>60 ml/min/1.73 sqM); Potassium 3.5 mmol/L (3.5-5.1); Sodium 128 mmol/L (137-145)
[2023-01-05] MEDS: FUROSEMIDE 10 MG/ML 10 ML VIAL IV SCH ×3 (08:59→20:39)
[2023-01-05] MEDS: SPIRONOLACTONE 25 MG TAB PO SCH ×2 (08:59→20:39)
[2023-01-05] MEDS: PANTOPRAZOLE 40 MG TABLET PO SCH (08:59)
--- NOTE | 2023-01-05 12:34 | P.PN ---
Subjective Progress Note Date: 01/05/23 This is a 72-year-old male patient with previous history of alcoholism and liver cirrhosis. The patient presented to the hospital because of worsening shortness of breath. He was at his primary care physician's office and he was found to have a large right-sided pleural effusion. In the emergency, the patient was quite short of breath. A chest x-ray was done and showed complete opacification of the right lung. He has had previous thoracentesis 2 at [facility] and the last thoracentesis was done on December 17. He also has history of ascites and the patient has had previous paracentesis. He has not drank alcohol since 2021. No signs of any hepatic encephalopathy. No cough. No sputum production. Trace lower extremity edema. No encephalopathy at this point in time. The patient is afebrile. The dullness count of 8.4 with a hemoglobin of 13.2. BUN is at 5 the creatinine 0.7. Sodium level is at 129. INR is at 1.5 with a PT of 15.2 and a PTT of 25.6. Lactic acid level is at 3.0. LFTs are abnormal with an AST of 73, alkaline phosphatase of 128, troponins are negative, proBNP level is 550. Electrolytes are all within normal limits. On 01/03/2023, the patient is feeling better. The patient is less short of breath. The patient remains on room air oxygen. A total of 3 L of fluid was removed from the right lung without any complication. The patient continues to have an ascites and the patient would benefit from a paracentesis. 01/04/2023, the patient is post thoracentesis with 3 L and paracentesis with 1.5 L. No complaints. 2022, remains on room air oxygen, currently on IV Lasix, receiving 60 mg every 12 hours in addition to Aldactone, the medical team's optimizing the patient's volume status. Sodium level is at 128. BUN is at 5 with a creatinine of 0.6. Ambulating. Objective - Vital Signs Vital signs: Vital Signs Temp 98.2 F 01/05/23 07:00 Pulse 91 01/05/23 07:00 Resp 16 01/05/23 07:00 BP 102/67 01/05/23 07:00 Pulse Ox 100 01/05/23 08:45 FiO2 21 01/05/23 08:45 Intake & Output 01/04/23 01/05/23 01/05/23 18:59 06:59 18:59 Intake Total 949 500 118 Output Total 3250 Balance 949 -2750 118 Intake: Oral 949 500 118 Output: Urine 3250 Other: Voiding Method Toilet Urinal Urinal Urinal - Exam Gen. appearance the patient is awake and alert and short of breath, currently on room air oxygen. Head exam was generally normal. There was no scleral icterus or corneal arcus. Mucous membranes were moist. Neck was supple and with jugular venous distension, thyromegaly, or carotid bruits. Carotids were easily palpable bilaterally. There was no adenopathy., The patient does have JVDs Lungs are diminished on the right side and the patient is complete opacification of the right lung, the breath sounds on the left are clear Cardiac exam revealed the PMI to be normally situated and sized. The rhythm was regular and no extrasystoles were noted during several minutes of auscultation. The first and second heart sounds were normal and physiologic splitting of the second heart sound was noted. There were no murmurs, rubs, clicks, or gallops. Abdomen is showing and ascites with a umbilical hernia. No direct tenderness, no rebound tenderness. No guarding Extremities trace edema, no cyanosis or clubbing Neurologically, the patient is awake and alert 3, no focal neurological deficit at this point in time. Examination of the skin revealed no evidence of significant rashes, suspicious appearing nevi or other concerning lesions. 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 No significant encephalopathy at this point in time Chronic hyponatremia secondary to liver failure Hyperbilirubinemia secondary to above Hypertension Plan May discharge this patient home after the medical team is completed the patient's diabetes and optimized his volume status He is on room air oxygen Some residual edema lower extremities Continue lactulose Advice against Tylenol May benefit from Lasix and Aldactone at time of discharge
--- NOTE | 2023-01-05 16:04 | P.PN ---
Progress Note - Text Progress Note Date: 01/05/23 Chief Complaint: Short of breath This is a pleasant 72-year-old patient of Dr. Horacio Cardoza. Not a very detailed historian. Known history of hypertension, Gardner's esophagitis, varices, possible cirrhosis. Last saw Dr. Annalee Zafar from GI about 2 years ago. Request to 2 months patient been getting increasingly short of breath. No fever no chills. Decreased appetite. Some weight loss. Normally able to get around. Patient was drinking somewhat excessive alcohol in the past. Has lower extremity edema. Some abdominal distention. No chest pain Patient underwent thoracentesis and paracentesis. 01/04/2023: Still complaining of shortness of breath. Tired. Edema present. Eating some. Changed from by mouth Lasix to IV Lasix. Fluid restriction. Strict I's and O's. Have the patient up in a chair. 01/05/2023: Up in a chair. Does feel tired and some shortness of breath. About 2000 mL in negative fluid balance. Lasix increased dose IV 60 mg every 8. Fluid restriction. Active Medications Acetaminophen (Acetaminophen Tab 325 Mg Tab) 650 mg PO Q6HR PRN PRN Reason: Mild Pain or Fever > 100.5 Calcium Carbonate/Glycine (Calcium Carbonate 500 Mg Chewable) 1,000 mg PO Q4HR PRN PRN Reason: Dyspepsia Furosemide (Furosemide 10 Mg/Ml 10 Ml Vial) 60 mg IV Q8H [facility] Last Admin: 01/05/23 15:07 Dose: 60 mg Lactulose (Lactulose 20 Gm/30 Ml Cup) 20 gm PO DAILY PRN PRN Reason: Constipation Lorazepam (Lorazepam 0.5 Mg Tab) 0.5 mg PO Q6HR PRN PRN Reason: Anxiety Melatonin (Melatonin 3 Mg Tablet) 3 mg PO HS PRN PRN Reason: Insomnia Naloxone HCl (Naloxone 0.4 Mg/Ml 1 Ml Vial) 0.2 mg IV Q2M PRN PRN Reason: Opioid Reversal Ondansetron HCl (Ondansetron 4 Mg/2 Ml Vial) 4 mg IVP Q8HR PRN PRN Reason: Nausea And Vomiting Pantoprazole Sodium (Pantoprazole 40 Mg Tablet) 40 mg PO DAILY [facility] Last Admin: 01/05/23 08:59 Dose: 40 mg Spironolactone (Spironolactone 25 Mg Tab) 100 mg PO BID KEON Last Admin: 01/05/23 08:59 Dose: 100 mg Past medical history to include: Hypertension, possible cirrhosis, Gardner's esophagus, low-sodium, esophageal varices, Social history: . Retired from [employer]. Up till last year was averaging about 12 beers a week. No smoking. Physical examination: VITAL SIGNS: 98.2, 91, 16, 1 or 2 by Adore 7, 100% room air GENERAL: BMI 31, up in a chair. Tired. Gynecomastia. Spider nevi. Dupytrens contracture EYES: Pupils equal. Conjunctiva normal. HEENT: External appearance of nose and ears normal, oral cavity grossly normal. NECK: JVD possibly raised masses not palpable. HEART: First and second heart sounds are normal; some edema LUNGS: Respiratory rate increased; decreased breath sounds. ABDOMEN: Soft, some distention, nontender, liver spleen not palpable, no masses palpable. Dullness to percussion in the flanks. PSYCH: Able to answer questions INVESTIGATIONS, reviewed in the clinical context: January 05: Potassium 3.5 crit. 0.69 January 04: Potassium 4.5 crit 0.68 01/03/2023: White count 7.9 hemoglobin 12.7 platelets 216 sodium 128 potassium 4.2 BUN 6 rate and 0.68 total bilirubin 2.7 albumin 2.5 January 02: White count 8.4 hemoglobin 13.2 platelets 213 sodium 129 potassium 3.7 creatinine 0.73 lactic acid 3.0 magnesia 1.5 total bilirubin 3.1 EKG tracing personally reviewed by me-normal sinus rhythm. Chest x-ray film personally reviewed by me-near opacification of the right lung. Chest ultrasound: 8.9 cm on the right side. 0 on the left side. Assessment and plan: -Large right pleural effusion. Likely hepatic hydrothorax. Other causes to be ruled out. 1.5 L of straw-colored fluid removed January 03.. Pulmonary following. -Probable alcoholic cirrhosis with evidence of portal hypertension. Patient has followed up with Dr. Annalee Zafar in the past. GI service not available in the hospital. -Ascites secondary to portal hypertension from cirrhosis Fluid restriction. Aldactone to 100 mg twice a day.. Paracentesis is 1.5 L done on January 03. -Acute fluid overload, multifactorial: Slow to respond Increase Lasix to IV Lasix 60 mg every 8 hours -Hypoalbuminemia from cirrhosis. -Chronic Esophageal varices. Currently no evidence of bleeding. -GERD PPI -Hyponatremia from hypervolemia. Diuretics.. Fluid restriction. -Full code His IV Lasix to 60 mg every 8. Other medications to continue. Follow labs.
[2023-01-05] MEDS ORDERED: POTASSIUM CHLORIDE ER 20 MEQ TAB.ER PO STA (20:05)
[2023-01-06] MEDS: FUROSEMIDE 10 MG/ML 10 ML VIAL IV SCH (06:10)
[2023-01-06 06:31] LABS: African American GFR (CKD) >90 (>60 ml/min/1.73 sqM); Anion Gap 4 mmol/L; Blood Urea Nitrogen 5 mg/dL (9-20); Calcium 7.7 mg/dL (8.4-10.2); Carbon Dioxide 28 mmol/L (22-30); Chloride 96 mmol/L (98-107); Glucose 104 mg/dL (74-99); Non-African American GFR(CKD) >90 (>60 ml/min/1.73 sqM); Potassium 3.7 mmol/L (3.5-5.1); Sodium 128 mmol/L (137-145)
[2023-01-06 07:57] VITALS: BP 114/71; PULSE 94; RESP 16; TEMP 98
[2023-01-06] MEDS: SPIRONOLACTONE 25 MG TAB PO SCH (08:58)
[2023-01-06] MEDS: PANTOPRAZOLE 40 MG TABLET PO SCH (08:58)
--- NOTE | 2023-01-06 21:04 | P.DS ---
Providers Date of admission: 01/03/23 10:03 Expected date of discharge: 01/06/23 Attending physician: Davion Rowland Consults: 01/02/23 16:35 Consult Physician Urgent Consulting Provider: Mervin Huber Consult Reason/Comments: Pleural effusion, dyspnea Do you want consulting provider notified?: Yes Primary care physician: [facility] Course: Chief Complaint: Short of breath This is a pleasant 72-year-old patient of Dr. Horacio Cardoza. Not a very detailed historian. Known history of hypertension, Gardner's esophagitis, varices, possible cirrhosis. Last saw Dr. Annalee Zafar from GI about 2 years ago. Request to 2 months patient been getting increasingly short of breath. No fever no chills. Decreased appetite. Some weight loss. Normally able to get around. Patient was drinking somewhat excessive alcohol in the past. Has lower extremity edema. Some abdominal distention. No chest pain Patient underwent thoracentesis and paracentesis. 01/04/2023: Still complaining of shortness of breath. Tired. Edema present. Eating some. Changed from by mouth Lasix to IV Lasix. Fluid restriction. Strict I's and O's. Have the patient up in a chair. 01/05/2023: Up in a chair. Does feel tired and some shortness of breath. About 2000 mL in negative fluid balance. Lasix increased dose IV 60 mg every 8. Fluid restriction. January 06: Doing better. Discussed with patient. Breathing better. Eating well. Will be discharged home on Lasix and Aldactone. Fluid restriction. Low- sodium diet. We'll follow with Dr. Annalee Zafar. Questions answered. Discussion and discharge planning more than 35 minutes Past medical history to include: Hypertension, possible cirrhosis, Gardner's esophagus, low-sodium, esophageal varices, Social history: . Retired from [employer] Up till last year was averaging about 12 beers a week. No smoking. Physical examination: VITAL SIGNS: 98, 94, 16, 11/71, 84% room air GENERAL: Comfortable. Tired. Gynecomastia. Spider nevi. Dupytrens contracture EYES: Pupils equal. Conjunctiva normal. HEENT: External appearance of nose and ears normal, oral cavity grossly normal. NECK: JVD possibly raised masses not palpable. HEART: First and second heart sounds are normal; some edema LUNGS: Respiratory rate increased; decreased breath sounds. ABDOMEN: Soft, remote distention, nontender, liver spleen not palpable, no masses palpable. PSYCH: Answering questions appropriately INVESTIGATIONS, reviewed in the clinical context: January 06: Sodium 128 potassium 3.7 creatinine 0.68 01/03/2023: White count 7.9 hemoglobin 12.7 platelets 216 sodium 128 potassium 4.2 BUN 6 rate and 0.68 total bilirubin 2.7 albumin 2.5 January 02: White count 8.4 hemoglobin 13.2 platelets 213 sodium 129 potassium 3.7 creatinine 0.73 lactic acid 3.0 magnesia 1.5 total bilirubin 3.1 EKG tracing personally reviewed by me-normal sinus rhythm. Chest x-ray film personally reviewed by me-near opacification of the right lung. Chest ultrasound: 8.9 cm on the right side. 0 on the left side. Assessment and plan: -Large right pleural effusion. Likely hepatic hydrothorax. Other causes to be ruled out. 1.5 L of straw-colored fluid removed January 03.. Pulmonary following. -Probable alcoholic cirrhosis with evidence of portal hypertension. Patient has followed up with Dr. Annalee Zafar in the past. GI service not available in the hospital. -Ascites secondary to portal hypertension from cirrhosis Fluid restriction. Aldactone to 100 mg twice a day.. Paracentesis is 1.5 L done on January 03. By mouth Lasix -Acute fluid overload, multifactorial: Aldactone by mouth Lasix -Hypoalbuminemia from cirrhosis. -Chronic Esophageal varices. Currently no evidence of bleeding. -GERD PPI -Hyponatremia from hypervolemia. Diuretics.. Fluid restriction. -Full code Disposition: Home Labs: BMP, CBC: 5 days Plan - Discharge Summary Discharge Rx Participant: Yes New Discharge Prescriptions: New Spironolactone [Aldactone] 100 mg PO BID #60 tab Furosemide [Lasix] 40 mg PO BID #60 tablet Continue Omeprazole [PriLOSEC] 20 mg PO DAILY Discontinued Spironolactone [Aldactone] 100 mg PO DAILY Furosemide [Lasix] 40 mg PO DAILY Discharge Medication List Omeprazole [PriLOSEC] 20 mg PO DAILY 01/02/23 [History] Furosemide [Lasix] 40 mg PO BID #60 tablet 01/06/23 [Rx] Spironolactone [Aldactone] 100 mg PO BID #60 tab 01/06/23 [Rx] Follow up Appointment(s)/Referral(s): Alison Zafar MD [STAFF PHYSICIAN] - 1 Week Horacio Cardoza MD [Primary Care Provider] - 1-2 days Activity/Diet/Wound Care/Special Instructions: fluid restrict 1600 cc/day low sodium diet Discharge Disposition: HOME SELF-CARE
== END 2023-01-06 12:55 | disposition home or self-care (01) | DRG 433 ==
LOC: EC 12:55 → 6NMEDSUR 16:36 → OBSVTOIN 01-03 10:03
PROVIDERS: ADMIT Hospitalist; ATTEND Hospitalist
PROC: 0W993ZZ Drainage of Right Pleural Cavity, Percutaneous Approach (ICD-10-PCS; principal; 2023-01-03)
PROC: 0W9G3ZZ Drainage of Peritoneal Cavity, Percutaneous Approach (ICD-10-PCS; 2023-01-03)
DX: K70.31 Alcoholic cirrhosis of liver with ascites (principal); E87.1 Hypo-osmolality and hyponatremia; K76.6 Portal hypertension; J91.8 Pleural effusion in other conditions classified elsewhere; I85.10 Secondary esophageal varices without bleeding; K59.00 Constipation, unspecified; K21.9 Gastro-esophageal reflux disease without esophagitis; E87.70 Fluid overload, unspecified; E88.09 Other disorders of plasma-protein metabolism, not elsewhere classified; I10 Essential (primary) hypertension; K22.70 Barrett's esophagus without dysplasia; G47.00 Insomnia, unspecified; F41.9 Anxiety disorder, unspecified; F10.20 Alcohol dependence, uncomplicated; E83.42 Hypomagnesemia; Z79.899 Other long term (current) drug therapy
CPT/HCPCS: 36415; 49083; 71045; 71046; 76604; 76705; 80048; 80053; 83605; 83735; 83880; 84484; 85025; 85610; 85730; 93005; 94760

== ENCOUNTER 2023-05-06 20:06 | Emergency (ER) | payer MEDICARE, OTHER ==
[2023-05-06] MEDS ORDERED: ONDANSETRON 4 MG/2 ML VIAL IVP STA (20:19)
[2023-05-06] MEDS ORDERED: SODIUM CHLORIDE 0.9% 1,000 ML IV STA (20:19)
[2023-05-06] MEDS ORDERED: PANTOPRAZOLE 40 MG/10 ML VIAL IVP STA (20:19)
[2023-05-06] MEDS ORDERED: MORPHINE SULFATE 4 MG/ML SYRINGE IVP STA (20:20)
[2023-05-06 20:34] VITALS: RESP 18; TEMP 97.5
[2023-05-06 20:37] LABS: Basophils % (A) 0 %; Eosinophils % (A) 0 %; HCT 44.9 % (39.0-53.0); HGB 15.7 gm/dL (13.0-17.5); Lymphocytes % (A) 18 %; MCH 35.8 pg (25.0-35.0); MCV 102.1 fL (80.0-100.0); Macrocytosis Slight; Mean Platelet Volume 7.1; Monocytes # (A) 0.8 k/uL (0-1.0); Monocytes % (A) 7 %; Neutrophils # (A) 8.2 k/uL (1.3-7.7); Neutrophils % (A) 73 %; Platelet Count 260 k/uL (150-450); RDW 13.6 % (11.5-15.5); WBC 11.3 k/uL (3.8-10.6)
--- NOTE | 2023-05-06 20:53 | ED ---
Altered Mental Status HPI - General Chief Complaint: Fall Stated Complaint: Alt mental status, uti Time Seen by Provider: 05/06/23 20:18 Source: EMS, RN notes reviewed, old records reviewed Mode of arrival: EMS Limitations: no limitations - History of Present Illness Initial Comments: This is a 73-year-old male to the emergency department for evaluation status. Patient is not acting appropriately per family and was found down. Patient does have history of severe alcohol drinking history, family is concerned that he may be currently drinking. Patient has no complaints here in the area is unable to provide history is significant poor strain secondary to altered mental status MD Complaint: altered mental status, confusion, intoxication (Thought to be drinking), weakness -: hour(s) Consistency of Symptoms: getting worse Context: alcohol abuse Associated Symptoms: weakness Treatments Prior to Arrival: IV fluid - Related Data Home Medications Medication Instructions Recorded Confirmed Omeprazole [PriLOSEC] 20 mg PO DAILY 01/02/23 05/06/23 Previous Rx's Medication Instructions Recorded Furosemide [Lasix] 40 mg PO BID #60 tablet 01/06/23 Spironolactone [Aldactone] 100 mg PO BID #60 tab 01/06/23 Allergies Allergy/AdvReac Type Severity Reaction Status Date / Time No Known Allergies Allergy Verified 05/06/23 20:51 Review of Systems ROS Statement: Those systems with pertinent positive or pertinent negative responses have been documented in the HPI. ROS Other: All systems not noted in ROS Statement are negative. Past Medical History Past Medical History: Hypertension, Liver Disease Additional Past Medical History / Comment(s): chronic hyponatermia, maurer esophagas, hyperbilirubinemia,espohageal varices History of Any Multi-Drug Resistant Organisms: None Reported Additional Past Surgical History / Comment(s): cataracts Past Anesthesia/Blood Transfusion Reactions: No Reported Reaction Past Psychological History: No Psychological Hx Reported Smoking Status: Never smoker Past Alcohol Use History: Abuse, Daily, Heavy Past Drug Use History: None Reported General Exam Limitations: altered mental status General appearance: alert, anxious, in distress Head exam: Present: atraumatic, normocephalic, normal inspection Eye exam: Present: normal appearance, PERRL, EOMI. Absent: scleral icterus, conjunctival injection, periorbital swelling ENT exam: Present: normal exam, mucous membranes moist Neck exam: Present: normal inspection. Absent: tenderness, meningismus, lymphadenopathy Respiratory exam: Present: normal lung sounds bilaterally. Absent: respiratory distress, wheezes, rales, rhonchi, stridor Cardiovascular Exam: Present: regular rate, normal rhythm, normal heart sounds. Absent: systolic murmur, diastolic murmur, rubs, gallop, clicks GI/Abdominal exam: Present: soft, normal bowel sounds. Absent: distended, tenderness, guarding, rebound, rigid Extremities exam: Present: normal inspection, full ROM, normal capillary refill. Absent: tenderness, pedal edema, joint swelling, calf tenderness Back exam: Present: normal inspection Neurological exam: Present: alert, oriented X3, CN II-XII intact Psychiatric exam: Present: normal affect, normal mood Skin exam: Present: warm, dry, intact, normal color. Absent: rash Course Vital Signs 05/06/23 05/07/23 20:09 00:15 Temperature 97.5 F L Pulse Rate 84 81 Respiratory 18 18 Rate Blood Pressure 103/81 126/79 O2 Sat by Pulse 98 97 Oximetry - Reevaluation(s) Reevaluation #1: 05/06/23 23:21 Medical record is reviewed Reevaluation #2: 05/06/23 23:22 Patient symptoms are just Reevaluation #3: 05/06/23 23:38 Patient has no improvement in symptoms, worsening symptoms here in the ER Reevaluation #4: 05/06/23 23:38 Was pt. sent in by a medical professional or institution (, PA, MAT[employer] LISTER, urgent care, hospital, or [facility]...) When possible be specific @ -no Did you speak to anyone other than the patient for history (EMS, parent, family, police, friend...)? What history was obtained from this source @ -no Did you review nursing and triage notes (agree or disagree)? Why? @ -agree Are old charts reviewed (outside hosp., previous admission, EMS record, old EKG, old radiological studies, urgent care reports/EKG's, [facility] records)? Report findings @ -yes Differential Diagnosis (chest pain, altered mental status, abdominal pain women, abdominal pain men, vaginal bleeding, weakness, fever, dyspnea, syncope, headache, dizziness, GI bleed, back pain, seizure, CVA, palpatations, mental health, musculoskeletal)? @ -prior EKG interpreted by me (3pts min.). @ -yes X-rays interpreted by me (1pt min.). @ -no CT interpreted by me (1pt min.). @ -yes negative for acute disease U/S interpreted by me (1pt. min.). @ -no What testing was considered but not performed or refused? (CT, X-rays, U/S, labs)? Why? @ -none What meds were considered but not given or refused? Why? @ -none Did you discuss the management of the patient with other professionals (professionals i.e. , PA, [employer] LISTER, lab, RT, psych nurse, social media director, assistant director of plant operations, teacher, upscale security officer, immigration case worker)? Give summary @ -no Was smoking cessation discussed for >3mins.? @ -no Was critical care preformed (if so, how long)? @ -yes31 Were there social determinants of health that impacted care today? How? (Homelessness, low income, unemployed, alcoholism, drug addiction, transportation, low edu. Level, literacy, decrease access to med. care, care home, rehab)? @ -none Was there de-escalation of care discussed even if they declined (Discuss DNR or withdrawal of care, Hospice)? DNR status @ -no What co-morbidities impacted this encounter? (DM, HTN, Smoking, COPD, CAD, Cancer, CVA, ARF, Chemo, Hep., AIDS, mental health diagnosis, sleep apnea, morbid obesity)? @ -none Was patient admitted / discharged? Hospital course, mention meds given and route, prescriptions, significant lab abnormalities, going to OR and other pertinent info. @ - 73 male to ER with significant altered mental status, patient has significant liver failure with elevated ammonia and altered mental status, patient will be transferred to [facility] for further evaluation management as directed Transferred to [facility] Admitted Undiagnosed new problem with uncertain prognosis? @ -no Drug Therapy requiring intensive monitoring for toxicity (Heparin, Nitro, Insulin, Cardizem)? @ -no Were any procedures done? @ -no Diagnosis/symptom? @ -Altered mental status, hyperammonemia and cirrhosis Acute, or Chronic, or Acute on Chronic? @ -Acute Uncomplicated (without systemic symptoms) or Complicated (systemic symptoms)? @ -Complicated Side effects of treatment? @ -no Exacerbation, Progression, or Severe Exacerbation? @ -exacerbation Poses a threat to life or bodily function? How? (Chest pain, [place], [place], pneumonia, PE, COPD, DKA, ARF, appy, cholecystitis, CVA, Diverticulitis, Homicidal, Suicidal, threat to staff... and all critical care pts) @ -yes with significant altered mental status and cirrhosis Reevaluation #5: 05/06/23 23:38 Differential Altered Mental Status: Hypoglycemia, DKA, hypercapnia, ETOH, overdose, CO poisoning, trauma, myxedema coma, HTN encephalopathy, infection, encephalitis, psychosis, intercranial hemorrhage, hepatic encephalopathy, meningitis, CVA, this is not meant to be an all-inclusive list - Consultations Consultation #1: spoke with on-call will accept patient in transfer Medical Decision Making - Medical Decision Making 73 male to ER with significant altered mental status, patient has significant liver failure with elevated ammonia and altered mental status, patient will be transferred to [facility] for further evaluation management as directed - Lab Data Result diagrams: 05/06/23 20:24 05/06/23 23:04 Lab Results 05/06/23 05/06/23 05/06/23 Range/Units 20:24 20:24 21:03 WBC 11.3 H (3.8-10.6) k/uL RBC 4.40 (4.30-5.90) m/uL Hgb 15.7 (13.0-17.5) gm/dL Hct 44.9 (39.0-53.0) % MCV 102.1 H (80.0-100.0) fL MCH 35.8 H (25.0-35.0) pg MCHC 35.0 (31.0-37.0) g/dL RDW 13.6 (11.5-15.5) % Plt Count 260 (150-450) k/uL MPV 7.1 Neutrophils % 73 % Lymphocytes % 18 % Monocytes % 7 % Eosinophils % 0 % Basophils % 0 % Neutrophils # 8.2 H (1.3-7.7) k/uL Lymphocytes # 2.0 (1.0-4.8) k/uL Monocytes # 0.8 (0-1.0) k/uL Eosinophils # 0.0 (0-0.7) k/uL Basophils # 0.0 (0-0.2) k/uL Macrocytosis Slight Sodium (137-145) mmol/L Potassium (3.5-5.1) mmol/L Chloride (98-107) mmol/L Carbon Dioxide (22-30) mmol/L Anion Gap mmol/L BUN (9-20) mg/dL Creatinine (0.66-1.25) mg/dL Est GFR (CKD-EPI)AfAm (>60 ml/min/1.73 sqM) Est GFR (CKD-EPI)NonAf (>60 ml/min/1.73 sqM) Glucose (74-99) mg/dL Lactic Ac Sepsis Rflx Plasma Lactic Acid Giuseppe 3.5 H* (0.7-2.0) mmol/L Calcium (8.4-10.2) mg/dL Phosphorus (2.5-4.5) mg/dL Magnesium (1.6-2.3) mg/dL Total Bilirubin (0.2-1.3) mg/dL AST (17-59) U/L ALT (4-49) U/L Alkaline Phosphatase (38-126) U/L Ammonia (<30) umol/L Total Protein (6.3-8.2) g/dL Albumin (3.5-5.0) g/dL Amylase (30-110) U/L Lipase (23-300) U/L Urine Color Urine Appearance (Clear) Urine pH (5.0-8.0) Ur Specific [place] (1.001-1.035) Urine Protein (Negative) Urine Glucose (UA) (Negative) Urine Ketones (Negative) Urine Blood (Negative) Urine Nitrite (Negative) Urine Bilirubin (Negative) Urine Urobilinogen (<2.0) mg/dL Ur Leukocyte Esterase (Negative) Serum Alcohol <10 mg/dL 05/06/23 05/06/23 05/06/23 Range/Units 21:03 21:22 23:04 WBC (3.8-10.6) k/uL RBC (4.30-5.90) m/uL Hgb (13.0-17.5) gm/dL Hct (39.0-53.0) % MCV (80.0-100.0) fL MCH (25.0-35.0) pg MCHC (31.0-37.0) g/dL RDW (11.5-15.5) % Plt Count (150-450) k/uL MPV Neutrophils % % Lymphocytes % % Monocytes % % Eosinophils % % Basophils % % Neutrophils # (1.3-7.7) k/uL Lymphocytes # (1.0-4.8) k/uL Monocytes # (0-1.0) k/uL Eosinophils # (0-0.7) k/uL Basophils # (0-0.2) k/uL Macrocytosis Sodium 126 L (137-145) mmol/L Potassium 4.5 (3.5-5.1) mmol/L Chloride 94 L (98-107) mmol/L Carbon Dioxide 18 L (22-30) mmol/L Anion Gap 14 mmol/L BUN 30 H (9-20) mg/dL Creatinine 1.49 H (0.66-1.25) mg/dL Est GFR (CKD-EPI)AfAm 53 (>60 ml/min/1.73 sqM) Est GFR (CKD-EPI)NonAf 46 (>60 ml/min/1.73 sqM) Glucose 103 H (74-99) mg/dL Lactic Ac Sepsis Rflx Y Plasma Lactic Acid Giuseppe (0.7-2.0) mmol/L Calcium 9.4 (8.4-10.2) mg/dL Phosphorus 4.9 H (2.5-4.5) mg/dL Magnesium 1.9 (1.6-2.3) mg/dL Total Bilirubin 1.8 H (0.2-1.3) mg/dL AST 69 H (17-59) U/L ALT 34 (4-49) U/L Alkaline Phosphatase 171 H (38-126) U/L Ammonia 84 H (<30) umol/L Total Protein 8.1 (6.3-8.2) g/dL Albumin 3.6 (3.5-5.0) g/dL Amylase 111 H (30-110) U/L Lipase 111 (23-300) U/L Urine Color Urine Appearance (Clear) Urine pH (5.0-8.0) Ur Specific [place] (1.001-1.035) Urine Protein (Negative) Urine Glucose (UA) (Negative) Urine Ketones (Negative) Urine Blood (Negative) Urine Nitrite (Negative) Urine Bilirubin (Negative) Urine Urobilinogen (<2.0) mg/dL Ur Leukocyte Esterase (Negative) Serum Alcohol mg/dL 05/06/23 05/07/23 05/07/23 Range/Units 23:52 00:20 00:33 WBC (3.8-10.6) k/uL RBC (4.30-5.90) m/uL Hgb (13.0-17.5) gm/dL Hct (39.0-53.0) % MCV (80.0-100.0) fL MCH (25.0-35.0) pg MCHC (31.0-37.0) g/dL RDW (11.5-15.5) % Plt Count (150-450) k/uL MPV Neutrophils % % Lymphocytes % % Monocytes % % Eosinophils % % Basophils % % Neutrophils # (1.3-7.7) k/uL Lymphocytes # (1.0-4.8) k/uL Monocytes # (0-1.0) k/uL Eosinophils # (0-0.7) k/uL Basophils # (0-0.2) k/uL Macrocytosis Sodium (137-145) mmol/L Potassium (3.5-5.1) mmol/L Chloride (98-107) mmol/L Carbon Dioxide (22-30) mmol/L Anion Gap mmol/L BUN (9-20) mg/dL Creatinine (0.66-1.25) mg/dL Est GFR (CKD-EPI)AfAm (>60 ml/min/1.73 sqM) Est GFR (CKD-EPI)NonAf (>60 ml/min/1.73 sqM) Glucose (74-99) mg/dL Lactic Ac Sepsis Rflx Y Plasma Lactic Acid Giuseppe 2.1 H* (0.7-2.0) mmol/L Calcium (8.4-10.2) mg/dL Phosphorus (2.5-4.5) mg/dL Magnesium (1.6-2.3) mg/dL Total Bilirubin (0.2-1.3) mg/dL AST (17-59) U/L ALT (4-49) U/L Alkaline Phosphatase (38-126) U/L Ammonia (<30) umol/L Total Protein (6.3-8.2) g/dL Albumin (3.5-5.0) g/dL Amylase (30-110) U/L Lipase (23-300) U/L Urine Color Colorless Urine Appearance Clear (Clear) Urine pH 6.5 (5.0-8.0) Ur Specific [place] 1.008 (1.001-1.035) Urine Protein Negative (Negative) Urine Glucose (UA) Negative (Negative) Urine Ketones Negative (Negative) Urine Blood Negative (Negative) Urine Nitrite Negative (Negative) Urine Bilirubin Negative (Negative) Urine Urobilinogen <2.0 (<2.0) mg/dL Ur Leukocyte Esterase Negative (Negative) Serum Alcohol mg/dL - Radiology Data Radiology results: report reviewed (CT brain C-spine is negative for acute disease), image reviewed Critical Care Time Critical Care Time: Yes Total Critical Care Time: 31 Disposition Clinical Impression: Fall, Syncope, Altered mental status, Liver cirrhosis, Hyperammonemia, Hepatic encephalopathy Disposition: OTHER INSTITUTION NOT DEFINED Condition: Serious Is patient prescribed a controlled substance at d/c from ED?: No Referrals: Horacio Cardoza MD [Primary Care Provider] - 1-2 days Time of Disposition: 23:30 - Out of Hospital Transfer - Req. Specs Out of Hospital Transfer - Requested Specifics: Other Emergency Center ([facility])
[2023-05-06] MEDS ORDERED: LORazepam 2 MG/ML INJ IV STA (20:55)
--- NOTE | 2023-05-06 22:11 | CT ---
EXAMINATION TYPE: CT brain cspine wo con CT DLP: 1492.5 mGycm, Automated exposure control for dose reduction was used. DATE OF EXAM: 05/06/2023 9:34 PM COMPARISON: None. CLINICAL INDICATION:Male, 73 years old with history of fall; recent falls and weakness, ams TECHNIQUE: Brain: Multiple axial CT images of the brain were obtained without IV contrast. Cspine: Axial CT images from the skull base to the inferior aspect of T2 we obtained without intraven ous contrast. Coronal and sagittal reformatted images were also reviewed. FINDINGS: Brain: Extra-axial spaces: No abnormal extra-axial fluid collections. Ventricular system: Dilatation in proportion to cerebral atrophy. Cerebral parenchyma: Cerebral atrophy. No acute intraparenchymal hemorrhage or mass effect. The taveras -white junction is well differentiated. Scattered hypoattenuating areas are seen within the white mat ter. Cerebellum: Unremarkable. Mass effect: No evidence of midline shift. Intracranial vasculature: Atherosclerotic calcifications of the intracranial vessels. Soft tissues: Normal. Calvarium/osseous structures: No depressed skull fracture. Paranasal sinuses and mastoid air cells: Clear. Visualized orbits: Bilateral aphakia Cervical spine: Fracture: None. Osseous structures: Multilevel degenerative disc disease changes with endplate spurring and disc oste ophyte complex's. Vertebral alignment: Within normal limits. Spinal canal/Neural Foramina: Disc osteophyte complexes at ?? with at least mild spinal canal stenosi s. Facet joint uncovertebral joint arthropathy scattered throughout the cervical spine with varying d egrees of neural foraminal stenosis. Neck soft tissues: Prevertebral soft tissues are within normal limits. Other: The airway is patent. Atherosclerosis of the carotid bifurcations. IMPRESSION: 1. No acute intracranial process. 2. Nonspecific white matter changes likely secondary to chronic small vessel ischemic disease. 3. No evidence of cervical spine fracture. 4. Mild multilevel degenerative disc disease.
[2023-05-06] MEDS ORDERED: LACTULOSE 20 GM/30 ML CUP PO ONE (22:48)
[2023-05-06 23:29] LABS: ALT 34 U/L (4-49); AST 69 U/L (17-59); African American GFR (CKD) 53 (>60 ml/min/1.73 sqM); Albumin 3.6 g/dL (3.5-5.0); Alkaline Phosphatase 171 U/L (38-126); Amylase 111 U/L (30-110); Anion Gap 14 mmol/L; Blood Urea Nitrogen 30 mg/dL (9-20); Calcium 9.4 mg/dL (8.4-10.2); Carbon Dioxide 18 mmol/L (22-30); Chloride 94 mmol/L (98-107); Glucose 103 mg/dL (74-99); Lipase 111 U/L (23-300); Magnesium 1.9 mg/dL (1.6-2.3); Non-African American GFR(CKD) 46 (>60 ml/min/1.73 sqM); Phosphorus 4.9 mg/dL (2.5-4.5); Potassium 4.5 mmol/L (3.5-5.1); Sodium 126 mmol/L (137-145); Total Bilirubin 1.8 mg/dL (0.2-1.3); Total Protein 8.1 g/dL (6.3-8.2)
[2023-05-07 00:28] VITALS: BP 126/79; PULSE 81
[2023-05-07 00:55] LABS: Appearance,Urine Clear (Clear); Bilirubin,Urine Negative (Negative); Blood,Urine Negative (Negative); Color,Urine Colorless; Glucose,Urine (UA) Negative (Negative); Ketones,Urine Negative (Negative); Leukocyte Esterase,Urine Negative (Negative); Nitrite,Urine Negative (Negative); PH, Urine 6.5 (5.0-8.0); Protein,Urine Negative (Negative); Specific Gravity,Urine 1.008 (1.001-1.035); Urobilinogen,Urine <2.0 mg/dL (<2.0)
== END 2023-05-07 01:06 | disposition other institution (70) ==
LOC: EC 20:06
DX: K76.82 Hepatic encephalopathy (principal); K74.60 Unspecified cirrhosis of liver; E72.20 Disorder of urea cycle metabolism, unspecified; R55 Syncope and collapse; R41.82 Altered mental status, unspecified; I10 Essential (primary) hypertension
CPT/HCPCS: 36415 ×2; 80053; 82140; 82150; 83605; 83690; 83735; 84100; 85025; 81003; 72125; 70450; 99291; 96374; 96375 ×2; 96361; G0480; J2060; J2405; C9113; 80320

== ENCOUNTER → 2023-06-16 | Day surgery (SDC) | payer MEDICARE, OTHER ==
[~2023-06-16] MED LIST: SODIUM CHLORIDE 0.9% 500 ML 500 ML in EMPTY BAG 1 BAG IV PRN
--- NOTE | 2023-06-16 13:25 | P.PCN ---
Date of Procedure: 06/16/23 Preoperative Diagnosis: Right-sided pleural effusion Postoperative Diagnosis: Right-sided pleural effusion Procedure(s) Performed: Thoracentesis Anesthesia: local Surgeon: Mervin Huber Estimated Blood Loss (ml): 0 Pathology: none sent Condition: stable Disposition: same day Operative Findings: A time out was performed and the chest x-ray was reviewed, the appropriate side was confirmed and marked. My hands were washed immediately prior to the procedure. I wore a surgical cap, mask with protective eyewear, sterile gown and sterile gloves throughout the procedure. The patient was prepped and draped in a sterile manner using chlorhexidine scrub after the appropriate level was percussed and confirmed by ultrasound. 1% lidocaine was used to anesthesize the skin, subcutaneous tissue, superior aspect of the rib periosteum and parietal pleura. A finder needle was then introduced over the superior aspect of the rib to locate the pleural fluid; 2colored fluid was aspirated at a depth of approximately 2 cm. A 10-blade scalpel was used to arlyn the skin at the insertion site. The [id number] needle was then introduced through the skin incision into the pleural space using negative aspiration pressure and the red colometric indicator to confirm appropriate positioning of the needle. The thoracentesis catheter was then threaded without difficulty. 2400 ml of turbid colored fluid was removed without difficulty. The catheter was then removed. No immediate complications were noted during the procedure. A post-procedure chest x-ray is pending at the time of this note. The fluid will not be sent for studies. Estimated blood loss is 0cc
--- NOTE | 2023-06-16 13:26 | XR ---
EXAMINATION TYPE: XR chest 1V portable DATE OF EXAM: 06/16/2023 COMPARISON: NONE HISTORY: Postthoracentesis TECHNIQUE: Single frontal view of the chest is obtained. FINDINGS: There is limited inspiration. Left hemithorax clear. There is significant opacification of the right hemithorax likely representing combination of pleural fluid and consolidation. No sizable pneumothorax. Arthropathy of the shoulders. Hypertrophic and degenerative change of the spine. IMPRESSION: No sizable pneumothorax. There is extensive opacification of the right hemithorax likely representing a combination of consolidation and residual pleural fluid.
[2023-06-16 13:41] VITALS: BP 115/74; PULSE 55; RESP 18; TEMP 98.5
== END ==
LOC: PROCWHC3 11:39
PROVIDERS: ATTEND Internal Medicine Critical Care Medicine
DX: J90 Pleural effusion, not elsewhere classified (principal)
CPT/HCPCS: 32554; 71045

== ENCOUNTER 2023-07-13 11:18 | Emergency (ER) | payer MEDICARE, OTHER ==
[2023-07-13 11:37] VITALS: TEMP 97.6
--- NOTE | 2023-07-13 11:46 | ED ---
General Adult HPI - General Chief complaint: Shortness of Breath Stated complaint: SOB Time Seen by Provider: 07/13/23 11:25 Source: patient, RN notes reviewed, old records reviewed Mode of arrival: wheelchair Limitations: no limitations - History of Present Illness Initial comments: 73-year-old male presents emergency department chief complaint shortness of breath. Patient has recurrent pleural effusion. He had an x-ray on ordered by Dr. Huber and showing this effusion he states that symptoms are worsened any severe hoping he can have a thoracentesis patient denies fevers or chills he states this is from his liver. Patient states he does have increasing shortness of breath worse when he lays down he had this drained several times in the past. - Related Data Home Medications Medication Instructions Recorded Confirmed Omeprazole [PriLOSEC] 20 mg PO DAILY 01/02/23 06/16/23 Previous Rx's Medication Instructions Recorded Furosemide [Lasix] 40 mg PO BID #60 tablet 01/06/23 Spironolactone [Aldactone] 100 mg PO BID #60 tab 01/06/23 Allergies Allergy/AdvReac Type Severity Reaction Status Date / Time No Known Allergies Allergy Verified 07/13/23 11:37 Review of Systems ROS Statement: Those systems with pertinent positive or pertinent negative responses have been documented in the HPI. ROS Other: All systems not noted in ROS Statement are negative. Past Medical History Past Medical History: Hypertension, Liver Disease Additional Past Medical History / Comment(s): chronic hyponatermia, maurer esophagas, hyperbilirubinemia,espohageal varices History of Any Multi-Drug Resistant Organisms: None Reported Additional Past Surgical History / Comment(s): cataracts Past Anesthesia/Blood Transfusion Reactions: No Reported Reaction Past Psychological History: No Psychological Hx Reported Smoking Status: Never smoker Past Alcohol Use History: None Reported Past Drug Use History: None Reported General Exam - General Exam Comments Initial Comments: Visual Physical Exam Vital signs reviewed General: Well-appearing, nontoxic, no acute distress. Head: Normocephalic, atraumatic Eyes: PERRLA, EOMI ENT: Airway patent Chest: Nonlabored breathing Skin: No visual rash, normal skin tone Neuro: Alert and oriented 3 Musculoskeletal: No gross abnormalities Limitations: no limitations General appearance: alert, in no apparent distress Head exam: Present: atraumatic, normocephalic, normal inspection ENT exam: Present: normal exam, mucous membranes moist Neck exam: Present: normal inspection. Absent: tenderness, meningismus, lymphadenopathy Respiratory exam: Present: decreased breath sounds (Right). Absent: normal lung sounds bilaterally, respiratory distress, wheezes, rales, rhonchi, stridor Cardiovascular Exam: Present: regular rate, normal rhythm, normal heart sounds. Absent: systolic murmur, diastolic murmur, rubs, gallop, clicks GI/Abdominal exam: Present: soft, normal bowel sounds. Absent: distended, tenderness, guarding, rebound, rigid Course Vital Signs 07/13/23 07/13/23 07/13/23 11:33 14:24 15:07 Temperature 97.6 F Pulse Rate 62 54 L 56 L Respiratory 22 18 20 Rate Blood Pressure 124/77 103/62 116/72 O2 Sat by Pulse 98 95 95 Oximetry Medical Decision Making - Medical Decision Making I completed the quick note portion of this chart signed Moshe Miller PA-C Was pt. sent in by a medical professional or institution (GEORGI Hein, PIPE AND TEST SUPERVISOR, urgent care, hospital, or [facility]...) When possible be specific @ -No Did you speak to anyone other than the patient for history (EMS, parent, family, police, friend...)? What history was obtained from this source @ -No Did you review nursing and triage notes (agree or disagree)? Why? @ -I reviewed and agree with nursing and triage notes Were old charts reviewed (outside hosp., previous admission, EMS record, old EKG, old radiological studies, urgent care reports/EKG's, [facility] records)? Report findings @ -Reviewed prior laboratory studies, x-ray Differential Diagnosis (chest pain, altered mental status, abdominal pain women, abdominal pain men, vaginal bleeding, weakness, fever, dyspnea, syncope, headache, dizziness, GI bleed, back pain, seizure, CVA, palpatations, mental health, musculoskeletal)? @ -[Differential Dyspnea: Coronary syndrome, arrhythmia, tamponade, asthma, COPD, pulmonary embolism, pneumonia, pneumothorax, pulmonary effusion, anaphylaxis, diabetic ketoacidosis, flailed chest, pulmonary contusion, diaphragmatic rupture, anemia, neuromuscular, this is not meant to be an all-inclusive list. EKG interpreted by me (3pts min.). @ -None X-rays interpreted by me (1pt min.). @ -Chest x-ray shows large pleural effusion on the right CT interpreted by me (1pt min.). @ -[None done U/S interpreted by me (1pt. min.). @ -None done What testing was considered but not performed or refused? (CT, X-rays, U/S, labs)? Why? @ -None What meds were considered but not given or refused? Why? @ -None Did you discuss the management of the patient with other professionals (professionals i.e. , PA, PIPE AND TEST SUPERVISOR, lab, RT, psych nurse, social welfare research worker, strategies analyst, teacher, sports development officer, director case management)? Give summary @ -Dr Huber regarding patient's chest x-ray, service patient with large pleural effusion. Patient will have thoracentesis performed by him Was smoking cessation discussed for >3mins.? @ -No Was critical care preformed (if so, how long)? @ -No Were there social determinants of health that impacted care today? How? (Homelessness, low income, unemployed, alcoholism, drug addiction, transportation, low edu. Level, literacy, decrease access to med. care, custodial, rehab)? @ -No Was there de-escalation of care discussed even if they declined (Discuss DNR or withdrawal of care, Hospice)? DNR status @ -No What co-morbidities impacted this encounter? (DM, HTN, Smoking, COPD, CAD, Cancer, CVA, ARF, Chemo, Hep., AIDS, mental health diagnosis, sleep apnea, morbid obesity)? @ -None Was patient admitted / discharged? Hospital course, mention meds given and route, prescriptions, significant lab abnormalities, going to OR and other pertinent info. @ -Discharge patient had thoracentesis performed by freezer unloader patient no acute complications. Patient was observed for 30 minutes recommended after thoracentesis there was no recommendation for repeat x-ray patient states he feels greatly improved. Undiagnosed new problem with uncertain prognosis? @ -No Drug Therapy requiring intensive monitoring for toxicity (Heparin, Nitro, Insulin, Cardizem)? @ -No Were any procedures done? @ -No Diagnosis/symptom? @ -[Pleural effusion Acute, or Chronic, or Acute on Chronic? @ -Acute Uncomplicated (without systemic symptoms) or Complicated (systemic symptoms)? @ -Complicated Side effects of treatment? @ -No Exacerbation, Progression, or Severe Exacerbation? @ -No Poses a threat to life or bodily function? How? (Chest pain, USA, MD, pneumonia, PE, COPD, DKA, ARF, appy, cholecystitis, CVA, Diverticulitis, Homicidal, Suicidal, threat to staff... and all critical care pts) @ -No - Lab Data Result diagrams: 07/13/23 13:13 07/13/23 13:13 Lab Results 07/13/23 07/13/23 07/13/23 Range/Units 13:13 13:13 13:13 WBC 6.3 (3.8-10.6) k/uL RBC 3.85 L (4.30-5.90) m/uL Hgb 13.2 (13.0-17.5) gm/dL Hct 40.6 (39.0-53.0) % MCV 105.5 H (80.0-100.0) fL MCH 34.3 (25.0-35.0) pg MCHC 32.5 (31.0-37.0) g/dL RDW 14.0 (11.5-15.5) % Plt Count 185 (150-450) k/uL MPV 8.0 Neutrophils % 35 % Lymphocytes % 49 % Monocytes % 10 % Eosinophils % 3 % Basophils % 1 % Neutrophils # 2.2 (1.3-7.7) k/uL Lymphocytes # 3.1 (1.0-4.8) k/uL Monocytes # 0.6 (0-1.0) k/uL Eosinophils # 0.2 (0-0.7) k/uL Basophils # 0.1 (0-0.2) k/uL Macrocytosis Moderate PT 13.8 H (10.0-12.5) sec INR 1.3 H (<1.2) APTT 29.3 (22.0-30.0) sec Sodium 138 (137-145) mmol/L Potassium 3.7 (3.5-5.1) mmol/L Chloride 110 H (98-107) mmol/L Carbon Dioxide 24 (22-30) mmol/L Anion Gap 4 mmol/L BUN 6 L (9-20) mg/dL Creatinine 0.66 (0.66-1.25) mg/dL Est GFR (CKD-EPI)AfAm >90 (>60 ml/min/1.73 sqM) Est GFR (CKD-EPI)NonAf >90 (>60 ml/min/1.73 sqM) Glucose 95 (74-99) mg/dL Calcium 8.4 (8.4-10.2) mg/dL Total Bilirubin 1.1 (0.2-1.3) mg/dL AST 46 (17-59) U/L ALT 20 (4-49) U/L Alkaline Phosphatase 121 (38-126) U/L Total Protein 7.1 (6.3-8.2) g/dL Albumin 2.7 L (3.5-5.0) g/dL Disposition Clinical Impression: Pleural effusion Disposition: HOME SELF-CARE Condition: Stable Instructions (If sedation given, give patient instructions): Pleural Effusion (DC), Thoracentesis (DC) Additional Instructions: Please return to the Emergency Department if symptoms worsen or any other concerns. Is patient prescribed a controlled substance at d/c from ED?: No Referrals: Horacio Cardoza MD [Primary Care Provider] - 1-2 days Time of Disposition: 15:01
--- NOTE | 2023-07-13 12:21 | XR ---
EXAMINATION TYPE: XR chest 2V DATE OF EXAM: 07/13/2023 12:15 PM CLINICAL INDICATION:Male, 73 years old with history of sob; [facility] COMPARISON: Chest radiographs from 06/16/2023 TECHNIQUE: XR chest 2V Frontal and lateral views of the chest. FINDINGS: Lungs/Pleura: Complete opacification of the right chest. There is no evidence of pleural effusion, fo [place] consolidation, or pneumothorax. Pulmonary vascularity: Unremarkable. Heart/mediastinum: Cardiomediastinal silhouette is unremarkable. Musculoskeletal: No acute osseous pathology. IMPRESSION: Similar complete opacification right chest likely representing large pleural effusion and/or atelecta sis
[2023-07-13 13:32] LABS: Basophils # (A) 0.1 k/uL (0-0.2); Basophils % (A) 1 %; Eosinophils # (A) 0.2 k/uL (0-0.7); Eosinophils % (A) 3 %; HCT 40.6 % (39.0-53.0); HGB 13.2 gm/dL (13.0-17.5); Lymphocytes # (A) 3.1 k/uL (1.0-4.8); Lymphocytes % (A) 49 %; MCH 34.3 pg (25.0-35.0); MCHC 32.5 g/dL (31.0-37.0); MCV 105.5 fL (80.0-100.0); Macrocytosis Moderate; Monocytes # (A) 0.6 k/uL (0-1.0); Monocytes % (A) 10 %; Neutrophils # (A) 2.2 k/uL (1.3-7.7); Neutrophils % (A) 35 %; Platelet Count 185 k/uL (150-450); RBC 3.85 m/uL (4.30-5.90); WBC 6.3 k/uL (3.8-10.6)
[2023-07-13 13:40] LABS: INR 1.3 (<1.2); Partial Thromboplastin Time 29.3 sec (22.0-30.0); Prothrombin Time 13.8 sec (10.0-12.5)
[2023-07-13 13:46] LABS: ALT 20 U/L (4-49); AST 46 U/L (17-59); African American GFR (CKD) >90 (>60 ml/min/1.73 sqM); Albumin 2.7 g/dL (3.5-5.0); Alkaline Phosphatase 121 U/L (38-126); Anion Gap 4 mmol/L; Blood Urea Nitrogen 6 mg/dL (9-20); Calcium 8.4 mg/dL (8.4-10.2); Carbon Dioxide 24 mmol/L (22-30); Chloride 110 mmol/L (98-107); Glucose 95 mg/dL (74-99); Non-African American GFR(CKD) >90 (>60 ml/min/1.73 sqM); Potassium 3.7 mmol/L (3.5-5.1); Sodium 138 mmol/L (137-145); Total Bilirubin 1.1 mg/dL (0.2-1.3); Total Protein 7.1 g/dL (6.3-8.2)
--- NOTE | 2023-07-13 14:21 | P.CNPUL ---
History of Present Illness Consult date: 07/13/23 Reason for consult: dyspnea, pleural effusion History of present illness: Derian is a 73-year-old male patient with known history of liver cirrhosis and known history of hepatic hydrothorax. The patient has reaccumulation of right- sided pleural effusion on a periodic basis and he was supposed to undergo an outpatient thoracentesis. However, the patient became more short of breath and ended up coming into the Emergency Department. He remains on room air oxygen. I do during this patient's right lung periodically. The last thoracentesis was done on outpatient basis on 06/16/2023 and a total of 2.4 L of fluid was aspirated. As mentioned, the patient became progressively more short of breath and he presented to the emergency and he had complete whitening out of the right lung. As such, an emergent right-sided thoracentesis was done on this patient in the emergency department. He is doing well. He has no other complaints. No fever. No chills. Blood work is stable with a white cell count of 6.3 with a hemoglobin 13.2. BUN is at 6 creatinine 0.66 and his sodium level is at 138. INR is at 1.4 with a PT of 13.8. UA is negative. No altered mentation. No reported bleeding complications. Review of Systems Constitutional: Reports fatigue Eyes: denies as per HPI, denies blurred vision, denies bulging eye, denies decreased vision, denies diplopia, denies discharge, denies dry eye, denies irritation, denies itching, denies pain, denies photophobia, denies loss of peripheral vision, denies loss of vision, denies tunnel vision/blind spots Ears: deny: decreased hearing, ear discharge, earache, tinnitus Ears, nose, mouth and throat: Reports as per HPI Breasts: absent: as per HPI, gynecomastia Cardiovascular: Reports decreased exercise tolerance, Reports dyspnea on exertion Respiratory: Reports dyspnea Gastrointestinal: Reports as per HPI Genitourinary: Reports as per HPI Musculoskeletal: Reports as per HPI Musculoskeletal: absent: ankle pain, ankle stiffness, ankle swelling Integumentary: Reports as per HPI Neurological: Reports as per HPI Psychiatric: Reports as per HPI Endocrine: Reports as per HPI Hematologic/Lymphatic: Reports as per HPI Allergic/Immunologic: Reports as per HPI Past Medical History Past Medical History: Hypertension, Liver Disease Additional Past Medical History / Comment(s): chronic hyponatermia, maurer esophagas, hyperbilirubinemia,espohageal varices History of Any Multi-Drug Resistant Organisms: None Reported Additional Past Surgical History / Comment(s): cataracts Past Anesthesia/Blood Transfusion Reactions: No Reported Reaction Past Psychological History: No Psychological Hx Reported Smoking Status: Never smoker Past Alcohol Use History: None Reported Past Drug Use History: None Reported Medications and Allergies Home Medications Medication Instructions Recorded Confirmed Type Omeprazole [PriLOSEC] 20 mg PO DAILY 01/02/23 06/16/23 History Furosemide [Lasix] 40 mg PO BID #60 tablet 01/06/23 06/16/23 Rx Spironolactone [Aldactone] 100 mg PO BID #60 tab 01/06/23 06/16/23 Rx Allergies Allergy/AdvReac Type Severity Reaction Status Date / Time No Known Allergies Allergy Verified 07/13/23 11:37 Physical Exam Vitals: Vital Signs Temp Pulse Resp BP Pulse Ox 07/13/23 11:33 97.6 F 62 22 124/77 98 Intake and Output 07/12/23 07/13/23 07/13/23 22:59 06:59 14:59 Other: Weight 90.718 kg Gen. appearance the patient is awake and alert and short of breath, currently on room air oxygen. Head exam was generally normal. There was no scleral icterus or corneal arcus. Mucous membranes were moist. Neck was supple and with jugular venous distension, thyromegaly, or carotid bruits. Carotids were easily palpable bilaterally. There was no adenopathy., The patient does have JVDs Lungs are diminished on the right side and the patient is complete opacification of the right lung, the breath sounds on the left are clear Cardiac exam revealed the PMI to be normally situated and sized. The rhythm was regular and no extrasystoles were noted during several minutes of auscultation. The first and second heart sounds were normal and physiologic splitting of the second heart sound was noted. There were no murmurs, rubs, clicks, or gallops. Abdomen is showing and ascites with a umbilical hernia. No direct tenderness, no rebound tenderness. No guarding Extremities trace edema, no cyanosis or clubbing Neurologically, the patient is awake and alert 3, no focal neurological deficit at this point in time. Examination of the skin revealed no evidence of significant rashes, suspicious appearing nevi or other concerning lesions. Results - Laboratory Findings CBC and BMP: 07/13/23 13:13 07/13/23 13:13 PT/INR, D-dimer PT 13.8 sec (10.0-12.5) H 07/13/23 13:13 INR 1.3 (<1.2) H 07/13/23 13:13 Abnormal lab findings: Abnormal Labs 07/13/23 07/13/23 07/13/23 13:13 13:13 13:13 RBC 3.85 L MCV 105.5 H PT 13.8 H INR 1.3 H Chloride 110 H BUN 6 L Albumin 2.7 L - Diagnostic Findings Chest x-ray: image reviewed Assessment and Plan Plan: Hepatic hydrothorax with a large right-sided pleural effusion, with complete whitening of the right lung. The patient is having. Thoracentesis. Left thoracentesis was done back in 06/16/2023 and a total of 2.4 L of pleural fluid was aspirated. Obviously, the patient had reaccumulation of the pleural fluid with secondary shortness of breath. Shortness of breath secondary to above Liver cirrhosis secondary to the previous history of alcoholism, compensated for now. No encephalopathy. No GI bleeding. Ascites, previous history of paracentesis Stigmata of chronic liver failure including portal hypertension and coagulopathy. No significant encephalopathy at this point in time Chronic hyponatremia secondary to liver failure, current sodium level is within normal and the rest of the electrolytes are also within normal limits. Hyperbilirubinemia secondary to above Hypertension Plan Thoracentesis in the emergency department to give this patient symptomatic relief. I do not see need for admission. If thoracentesis is uneventful, the patient is to be discharged home to be followed up on outpatient basis. Medications Continue lactulose Continue Lasix and Aldactone May need a tertiary care center for his chronic liver disease and have made recommendations for the family for this patient to be seen at [facility] regarding management of his chronic liver cirrhosis.
--- NOTE | 2023-07-13 14:21 | P.PCN ---
Date of Procedure: 07/13/23 Operative Findings: Preoperative Diagnosis: Right-sided pleural effusion Postoperative Diagnosis: Right-sided pleural effusion Procedure(s) Performed: Thoracentesis Anesthesia: local Surgeon: Mervin Huber Estimated Blood Loss (ml): 0 Pathology: none sent Condition: stable Disposition: same day Operative Findings: A time out was performed and the chest x-ray was reviewed, the appropriate side was confirmed and marked. My hands were washed immediately prior to the procedure. I wore a surgical cap, mask with protective eyewear, sterile gown and sterile gloves throughout the procedure. The patient was prepped and draped in a sterile manner using chlorhexidine scrub after the appropriate level was percussed and confirmed by ultrasound. 1% lidocaine was used to anesthesize the skin, subcutaneous tissue, superior aspect of the rib periosteum and parietal pleura. A finder needle was then introduced over the superior aspect of the rib to locate the pleural fluid; 2colored fluid was aspirated at a depth of approximately 2 cm. A 10-blade scalpel was used to arlyn the skin at the insertion site. The [id number] needle was then introduced through the skin incision into the pleural space using negative aspiration pressure and the red colometric indicator to confirm appropriate positioning of the needle. The thoracentesis catheter was then threaded without difficulty. 3300 ml of turbid colored fluid was removed without difficulty. The catheter was then removed. No immediate complications were noted during the procedure. A post-procedure chest x-ray is pending at the time of this note. The fluid will not be sent for studies. Estimated blood loss is 0cc
[2023-07-13 15:20] VITALS: BP 116/72; PULSE 56; RESP 20
== END 2023-07-13 15:15 | disposition home or self-care (01) ==
LOC: EC 11:18
DX: J90 Pleural effusion, not elsewhere classified (principal); K74.60 Unspecified cirrhosis of liver; R18.8 Other ascites; I10 Essential (primary) hypertension
CPT/HCPCS: 32555; 36415; 71046; 80053; 85025; 85610; 85730; 99285